=== PATIENT | male | born 1950 | race Caucasian/White ===

== ENCOUNTER 2017-05-30 11:01 | Inpatient (IN) | payer MEDICARE, OTHER ==
[2017-05-29] MEDS: Zosyn 3.375gm/50ml Premix 50 ML IVPB SCH (14:45)
[~2017-05-30] VITALS: Ht 172.7 cm; Wt 74.8 kg
[~2017-05-30 11:01] MED LIST: AMLODIPINE BESYL5 MG ORAL; CEFEPIME-D2 GM/50 ML IVPB; KLONOPIN1 MG ORAL; LAMICTAL100 MG ORAL; LEVETIRACETAM500 MG ORAL; METOPROLOL TART50 M1 ORAL; MILK OF MA400 MG/51 ORAL; MULTIVITAMINS1 EAC2 ORAL; NUEDEXTA 20-101 EAC1 PO; TYLENOL EXTRA500 MG ORAL; VANCOMYCIN HCL125 MG PO; VANCOMYCIN1 GM/2502 IVPB; ZYVOX600 MG ORAL; mylanta PO
[2017-05-30 11:36] VITALS: BP 107/56
[2017-05-30 11:44] LABS: APPEARANCE,URINE CLEAR; KETONES,URINE NEGATIVE (NEGATIVE); LEUKOCYTE ESTERASE ,URINE NEGATIVE (NEGATIVE); NITRITE,URINE NEGATIVE (NEGATIVE); PH,URINE 7 (4.5-8.0); PROTEIN,URINE NEGATIVE (NEGATIVE); UROBILINOGEN,URINE NORMAL MG/DL (0.0-1.0)
[2017-05-30 11:45] LABS: BASOPHILS % (AUTO) 0.5 % (0.0-2.0); EOSINOPHILS % (AUTO) 0.6 % (0.0-3.0); LYMPHOCYTES % (AUTO) 10.2 % (20.0-45.0); MEAN CORPUSCULAR HEMOGLOBIN 31.9 PG (27.0-31.0); MEAN CORPUSCULAR HGB CONC 35.2 G/DL (32.0-36.0); MEAN CORPUSCULAR VOLUME 91 FL (80-99); MEAN PLATELET VOLUME 5.9 FL (6.5-10.1); MONOCYTES % (AUTO) 8.3 % (1.0-10.0); NEUTROPHILS % (AUTO) 80.4 % (45.0-75.0); PLATELET COUNT 166 K/UL (150-450); RED BLOOD COUNT 4.58 M/UL (4.70-6.10); RED CELL DISTRIBUTION WIDTH 10.8 % (11.6-14.8); WHITE BLOOD COUNT 12.1 K/UL (4.8-10.8)
[2017-05-30 11:54] LABS: BACTERIA,URINE OCCASIONAL /HPF; SQUAMOUS EPITHELIAL CELL,UR OCCASIONAL /LPF (NONE/OCC); WBC,URINE 0-2 /HPF (0 - 0)
[2017-05-30 12:03] LABS: ALANINE AMINOTRANSFERASE 35 U/L (12-78); ALBUMIN/GLOBULIN RATIO 0.8 (1.0-2.7); ANION GAP 8 mmol/L (5-15); ASPARTATE AMINO TRANSFERASE 26 U/L (15-37); CALCIUM 9.2 MG/DL (8.5-10.1); CARBON DIOXIDE 28 MMOL/L (21-32); CHLORIDE 109 MMOL/L (98-107); GLOMERULAR FILTRATION RATE > 60 mL/min (>60); POTASSIUM 4.1 MMOL/L (3.5-5.1); SODIUM 145 MMOL/L (136-145); TOTAL PROTEIN 7.2 G/DL (6.4-8.2)
[2017-05-30 12:11] LABS: CKMB 0.6 NG/ML (0.0-3.6)
[2017-05-30] MEDS ORDERED: Cefepime HCl 1 GM in D5W 55 ML IVPB ONE (12:15)
[2017-05-30] MEDS ORDERED: Azithromycin 500 MG in NS 275 ML IV ONE (12:15)
[2017-05-30] MEDS ORDERED: BISACODYL5 MG ORAL (12:17)
[2017-05-30] MEDS ORDERED: RISPERDAL2 MG ORAL ×2 (12:17)
[2017-05-30] MEDS ORDERED: COLACE100 MG ORAL (12:17)
[2017-05-30] MEDS ORDERED: Cefepime 1gm vial ONE (12:20)
[2017-05-30] MEDS ORDERED: Azithromycin 500mg Inj IV ONE (12:20)
--- NOTE | 2017-05-30 12:41 | Diagnostic Imaging Report ---
Indication: Dyspnea Comparison: 06/07/16 A single view chest radiograph was obtained. Findings: Mild basilar groundglass reticular densities are present. There is no evidence of pulmonary edema. Bones are osteopenic. There is old left clavicle fracture again noted. Aorta is mildly calcified. Calcifications again noted in the left ovary hilum and mediastinum. Impression: Mild basilar reticular densities. Infiltrate versus atelectasis. Please correlate clinically. Old granulomatous disease
[2017-05-30 12:59] VITALS: BP 109/56
[2017-05-30] MEDS ORDERED: LORazepam Inj 2mg/ml 1ml IV ONE (13:15)
[2017-05-30] MEDS ORDERED: LORazepam Inj 2mg/ml 1ml ONE (13:16)
[2017-05-30] MEDS ORDERED: Piperacillin/Tazobactam 3.375 GM in D5W 110 ML IVPB SCH (14:15)
[2017-05-30] MEDS ORDERED: Milk of Magnesia 30ml Ud ORAL PRN (14:30)
[2017-05-30] MEDS ORDERED: Fleet's Enema 133ml RECTAL ONE (14:30)
--- NOTE | 2017-05-30 14:57 | Emergency Room Report ---
History of Present Illness General Chief Complaint: Fever Source: Patient, EMS Present Illness HPI 66-year-old male presents ED for evaluation. Per EMS patient does have fever at [facility] today. Patient was given Tylenol. Patient is unable to provide any additional history at this time as he has dementia. patient has no signs of distress. No cough. Shortness of breath. No aggravating relieving factors. No other associated symptoms Allergies: Coded Allergies: No Known Allergies (Unverified , 05/07/16) Patient History Past Medical History: COPD, dementia, seizures Past Surgical History: none Pertinent Family History: none Social History: Denies: smoking, alcohol use, drug use Immunizations: UTD Reviewed Nursing Documentation: PMH: Agreed, PSxH: Agreed Nursing Documentation-PMH Past Medical History: No History, Except For Hx Cardiac Problems: No Hx Hypertension: No Hx Pacemaker: No Hx Asthma: No Hx COPD: Yes Hx Diabetes: No Hx Cancer: No Hx Gastrointestinal Problems: No Hx Dialysis: No Hx Neurological Problems: Yes Hx Cerebrovascular Accident: Yes Hx Dementia: Yes - Frontal lobe dementia Hx Seizures: Yes Review of Systems All Other Systems: negative except mentioned in HPI Physical Exam Vital Signs Date Time Temp Pulse Resp B/P (MAP) Pulse Ox O2 Delivery O2 Flow Rate FiO2 05/30/17 11:02 97.2 86 20 94/58 93 Room Air Sp02 EP Interpretation: reviewed, normal General Appearance: non-toxic, other - dementia Head: normocephalic Eyes: bilateral eye normal inspection, bilateral eye PERRL ENT: normal ENT inspection Neck: normal inspection Respiratory: chest non-tender, lungs clear, normal breath sounds, speaking full sentences Cardiovascular #1: regular rate, rhythm, no edema Gastrointestinal: normal inspection Rectal: deferred Genitourinary: no CVA tenderness Musculoskeletal: normal inspection Neurologic: other - dementia Psychiatric: other - dementia Skin: normal inspection Lymphatic: normal inspection Medical Decision Making Diagnostic Impression: Primary Impression: Fever Qualified Codes: R50.9 - Fever, unspecified Additional Impressions: UTI (urinary tract infection) Qualified Codes: N39.0 - Urinary tract infection, site not specified PNA (pneumonia) Qualified Codes: J18.9 - Pneumonia, unspecified organism ER Course Hospital Course 66 year-old male presents to ED with fever Differential diagnoses include: Pneumonia, UTI, sepsis, dehydration, [place]/ unstable angina Clinical course Patient placed on stretcher. On manager cardiac with stable vitals are ED course. After initial history and physical, I ordered labs, IV fluids, EKG, chest x-ray, blood cultures, UA. Labs - electrolytes ok, noted leukocytosis, troponins negative, UA grossly positive for UTI, lactate ok CXR - infiltrate Abx given. Case discussed with Dr Rdz and they agreed to admit patient to their service for further care and support I feel this is a highly complex case requiring extensive working including EKG/ Rhythm strip, Xray/CT/US, Blood/urine lab work, repeat exams while in ED, and administration of strong opiates/narcotics for pain control, admission to hospital or close patient follow up. Diagnosis - fever, UTI, Pneumonia admitted to floor in serious condition Labs Test 05/30/17 11:20 White Blood Count 12.1 K/UL (4.8-10.8) Red Blood Count 4.58 M/UL (4.70-6.10) Hemoglobin 14.6 G/DL (14.2-18.0) Hematocrit 41.5 % (42.0-52.0) Mean Corpuscular Volume 91 FL (80-99) Mean Corpuscular Hemoglobin 31.9 PG (27.0-31.0) Mean Corpuscular Hemoglobin Concent 35.2 G/DL (32.0-36.0) Red Cell Distribution Width 10.8 % (11.6-14.8) Platelet Count 166 K/UL (150-450) Mean Platelet Volume 5.9 FL (6.5-10.1) Neutrophils (%) (Auto) 80.4 % (45.0-75.0) Lymphocytes (%) (Auto) 10.2 % (20.0-45.0) Monocytes (%) (Auto) 8.3 % (1.0-10.0) Eosinophils (%) (Auto) 0.6 % (0.0-3.0) Basophils (%) (Auto) 0.5 % (0.0-2.0) Urine Color Pale yellow Urine Appearance Clear Urine pH 7 (4.5-8.0) Urine Specific [place] 1.010 (1.005-1.035) Urine Protein Negative (NEGATIVE) Urine Glucose (UA) Negative (NEGATIVE) Urine Ketones Negative (NEGATIVE) Urine Occult Blood 1+ (NEGATIVE) Urine Nitrite Negative (NEGATIVE) Urine Bilirubin Negative (NEGATIVE) Urine Urobilinogen Normal MG/DL (0.0-1.0) Urine Leukocyte Esterase Negative (NEGATIVE) Urine RBC 2-4 /HPF (0 - 0) Urine WBC 0-2 /HPF (0 - 0) Urine Squamous Epithelial Cells Occasional /LPF Urine Bacteria Occasional /HPF (NONE) Sodium Level 145 MMOL/L (136-145) Potassium Level 4.1 MMOL/L (3.5-5.1) Chloride Level 109 MMOL/L (98-107) Carbon Dioxide Level 28 MMOL/L (21-32) Anion Gap 8 mmol/L (5-15) Blood Urea Nitrogen 18 mg/dL (7-18) Creatinine 1.0 MG/DL (0.55-1.30) Estimat Glomerular Filtration Rate > 60 mL/min (>60) Glucose Level 113 MG/DL (74-106) Lactic Acid Level 1.20 mmol/L (0.66-2.22) Calcium Level 9.2 MG/DL (8.5-10.1) Total Bilirubin 0.5 MG/DL (0.2-1.0) Aspartate Amino Transf (AST/SGOT) 26 U/L (15-37) Alanine Aminotransferase (ALT/SGPT) 35 U/L (12-78) Alkaline Phosphatase 75 U/L (46-116) Total Creatine Kinase 36 U/L (26-308) Creatine Kinase MB 0.6 NG/ML (0.0-3.6) Creatine Kinase MB Relative Index 1.6 Troponin I 0.008 ng/mL (0.000-0.056) Pro-B-Type Natriuretic Peptide 169 pg/mL (0-125) Total Protein 7.2 G/DL (6.4-8.2) Albumin 3.2 G/DL (3.4-5.0) Globulin 4.0 g/dL Albumin/Globulin Ratio 0.8 (1.0-2.7) Chest X-Ray Diagnostic Results Chest X-Ray Diagnostic Results : Chest X-Ray Ordered: Yes # of Views/Limited/Complete: 1 View Indication: Shortness of Breath EP Interpretation: Yes Interpretation: no consolidation, no pneumothorax, no acute cardiopulmonary disease, other - infiltrate/atelectasis Impression: Other - pneumonia Electronically Signed by: Electronically signed by Jasbir Albrecht MD Last Vital Signs Date Time Temp Pulse Resp B/P (MAP) Pulse Ox O2 Delivery O2 Flow Rate FiO2 05/30/17 13:23 99.0 80 20 109/56 95 Room Air Status: improved Disposition: ADMITTED INPATIENT Condition: Serious Referrals: Keila Rdz MD (PCP) JASBIR ALBRECHT M.D. May 30, 2017 14:57
[2017-05-30] MEDS: Zosyn 3.375gm/50ml Premix 50 ML IVPB SCH ×2 (15:27→21:38)
[2017-05-30 16:00] VITALS: BP 128/82
--- NOTE | 2017-05-30 19:18 | Neurology Progress Note ---
Objective Physical Exam Last Vital Signs Date Time Temp Pulse Resp B/P (MAP) Pulse Ox O2 Delivery O2 Flow Rate FiO2 05/30/17 16:00 97.7 85 20 128/82 96 Room Air Laboratory Tests Test 05/30/17 11:20 White Blood Count 12.1 K/UL (4.8-10.8) H Red Blood Count 4.58 M/UL (4.70-6.10) L Hemoglobin 14.6 G/DL (14.2-18.0) Hematocrit 41.5 % (42.0-52.0) L Mean Corpuscular Volume 91 FL (80-99) Mean Corpuscular Hemoglobin 31.9 PG (27.0-31.0) H Mean Corpuscular Hemoglobin Concent 35.2 G/DL (32.0-36.0) Red Cell Distribution Width 10.8 % (11.6-14.8) L Platelet Count 166 K/UL (150-450) Mean Platelet Volume 5.9 FL (6.5-10.1) L Neutrophils (%) (Auto) 80.4 % (45.0-75.0) H Lymphocytes (%) (Auto) 10.2 % (20.0-45.0) L Monocytes (%) (Auto) 8.3 % (1.0-10.0) Eosinophils (%) (Auto) 0.6 % (0.0-3.0) Basophils (%) (Auto) 0.5 % (0.0-2.0) Urine Color Pale yellow Urine Appearance Clear Urine pH 7 (4.5-8.0) Urine Specific [place] 1.010 (1.005-1.035) Urine Protein Negative (NEGATIVE) Urine Glucose (UA) Negative (NEGATIVE) Urine Ketones Negative (NEGATIVE) Urine Occult Blood 1+ (NEGATIVE) H Urine Nitrite Negative (NEGATIVE) Urine Bilirubin Negative (NEGATIVE) Urine Urobilinogen Normal MG/DL (0.0-1.0) Urine Leukocyte Esterase Negative (NEGATIVE) Urine RBC 2-4 /HPF (0 - 0) H Urine WBC 0-2 /HPF (0 - 0) Urine Squamous Epithelial Cells Occasional /LPF Urine Bacteria Occasional /HPF (NONE) Sodium Level 145 MMOL/L (136-145) Potassium Level 4.1 MMOL/L (3.5-5.1) Chloride Level 109 MMOL/L (98-107) H Carbon Dioxide Level 28 MMOL/L (21-32) Anion Gap 8 mmol/L (5-15) Blood Urea Nitrogen 18 mg/dL (7-18) Creatinine 1.0 MG/DL (0.55-1.30) Estimat Glomerular Filtration Rate > 60 mL/min (>60) Glucose Level 113 MG/DL (74-106) H Lactic Acid Level 1.20 mmol/L (0.66-2.22) Calcium Level 9.2 MG/DL (8.5-10.1) Total Bilirubin 0.5 MG/DL (0.2-1.0) Aspartate Amino Transf (AST/SGOT) 26 U/L (15-37) Alanine Aminotransferase (ALT/SGPT) 35 U/L (12-78) Alkaline Phosphatase 75 U/L (46-116) Total Creatine Kinase 36 U/L (26-308) Creatine Kinase MB 0.6 NG/ML (0.0-3.6) Creatine Kinase MB Relative Index 1.6 Troponin I 0.008 ng/mL (0.000-0.056) Pro-B-Type Natriuretic Peptide 169 pg/mL (0-125) H Total Protein 7.2 G/DL (6.4-8.2) Albumin 3.2 G/DL (3.4-5.0) L Globulin 4.0 g/dL Albumin/Globulin Ratio 0.8 (1.0-2.7) L Impression/Recommendations Problems: (1) s/p accidental fall r/oICH (2) PNA (pneumonia) (3) UTI (urinary tract infection) (4) Sacral decubitus ulcer, stage II Recommendations examined , orders placed FRANCIS HANKINS May 30, 2017 19:18
[2017-05-30 20:03] VITALS: BP 107/63
--- NOTE | 2017-05-30 23:30 | History and Physical Report ---
DATE OF ADMISSION: 05/30/2017 HISTORY OF PRESENT ILLNESS: The patient is admitted for fever of 101 at the senior care and admitted for sepsis workup. The patient is a poor historian, agitated and psychiatric patient. Cannot get any history from the patient. The patient might have UTI. The patient also might have pneumonia. Cannot get any history from the patient. PAST MEDICAL HISTORY: Psychosis, anxiety, mood disorder, constipation, history of hypertension, and seizure disorder. PAST SURGICAL HISTORY: Denies. ALLERGIES: No known allergies. MEDICATIONS: Bisacodyl, Klonopin, Colace, Lamictal, Keppra, multivitamin, and risperidone. SOCIAL HISTORY: Unable to obtain. Comes from a senior care. FAMILY HISTORY: Unable to obtain. Poor historian. REVIEW OF SYSTEMS: Unable to obtain. PHYSICAL EXAMINATION: VITAL SIGNS: Temperature 97.2, pulse is 86, and blood pressure 94/54. HEENT: PERRLA. NECK: Supple. No lymphadenopathy. CHEST: Clear to auscultation. GASTROINTESTINAL: Soft, nontender, and nondistended. No organomegaly. EXTREMITIES: No edema. NEUROLOGIC: Reflexes are equal on both sides. Oriented to name only. He is agitated. LABORATORY DATA: WBC 12.1, hemoglobin 14.6, platelets 166. He is trying to get out of bed. Sodium 145, potassium 4.1, BUN of 18, creatinine 1, glucose of 113. ASSESSMENT AND PLAN: Fever. Septic workup. I have consulted Infectious Disease to see the patient to rule out urinary tract infection versus pneumonia to find out the reason why the patient has such fever. I have again consulted Infectious Disease. For elevated chloride and hypotension, I have consulted Dr. Olivas to see if the patient might be dehydrated and Dr. Olivas will help with possible rehydration and improving the blood pressure control, and also I have consulted Dr. Polanco because the patient is agitated and restless and trying agitated and tried to get out bed. I also ordered a sitter as well. Kenneth Cervantes JOB#: [id number] CC:
[2017-05-30 23:50] VITALS: BP 135/78
[2017-05-31 04:00] VITALS: BP 129/107
[2017-05-31] MEDS: Zosyn 3.375gm/50ml Premix 50 ML IVPB SCH ×3 (05:01→21:17)
--- NOTE | 2017-05-31 07:30 | Consultation ---
DATE OF CONSULTATION: 05/30/2017 INFECTIOUS DISEASES CONSULTATION CONSULTING PHYSICIAN: Eula Sandhu M.D. REFERRING PHYSICIAN: Keila Rdz M.D. REASON FOR CONSULTATION: . HISTORY OF PRESENTING ILLNESS: This is a 66-year-old gentleman with history of pneumonia and altered mental status, who presents with increasing confusion. He was seen in [place] emergency room, and an Infectious Diseases consultation has been obtained for antibiotics. The patient received cefepime and azithromycin in the ER. PAST MEDICAL HISTORY: Unknown. MEDICATIONS: Pending. ALLERGIES: No known drug allergies. SOCIAL HISTORY: Unknown. FAMILY HISTORY: Unknown. REVIEW OF SYSTEMS: Unable to obtain currently. PHYSICAL EXAMINATION: VITAL SIGNS: Temperature of 99, T-max of 99, pulse of 80, respiratory rate 20, blood pressure 109/56, and O2 saturation of 95%. HEENT: Pupils are equally reactive to light and accommodation. Mouth appears clean without thrush. NECK: Supple. No adenopathy. No JVD. CARDIOVASCULAR: Regular rate and rhythm. No murmurs. LUNGS: Clear to auscultation bilaterally. No crackles. No wheezes. ABDOMEN: Soft and nontender. No organomegaly. EXTREMITIES: No cyanosis. No clubbing. No edema. LABORATORY AND DIAGNOSTIC DATA: White count of 12.1, hemoglobin 13.6, hematocrit 41.5, MCV 91, and platelet count of 166 with neutrophils of 80%. Sodium 145, potassium 4.1, chloride 109, bicarbonate 28, BUN 18, creatinine 1, glucose 113, and calcium 9.2. Total bilirubin 0.5. AST 26, ALT 35, and alkaline phosphatase 75. CK of 36, CK-MB 0.6, troponin 0.008, and beta-natriuretic peptide 169. Total protein 7.2 and albumin 3.2. UA showing 0 to 2 white cells. Blood cultures are pending. Chest x-ray showing mild bibasilar reticular densities, infiltrate versus atelectasis noted. ASSESSMENT: 1. This is a 66-year-old gentleman who comes in when he was found to have a leukocytosis and pneumonia. He received cefepime and azithromycin in the emergency room. 2. Leukocytosis. PLAN: 1. We will start the patient on Zosyn. 2. We will order sputum for Gram stain and culture. 3. We will follow up cultures and adjust antibiotics accordingly. I would like to thank Dr. Rdz for this consultation. This consultation has been done as coverage for Dr. Hunter Cross. Eula Sandhu M.D. DR: SHASHANK JOB#: [id number] CC: Keila Rdz M.D.; Fax#: [phone] HUNTER CROSS M.D. ; FAX#: [phone]
[2017-05-31 08:05] VITALS: BP 118/65
[2017-05-31] MEDS ORDERED: LORazepam Inj 2mg/ml 1ml IV ONE (08:45)
[2017-05-31] MEDS: Metoprolol Tartrate 50mg tab ORAL SCH (08:52)
[2017-05-31] MEDS: Multivitamins W/Minerals 15 ML UDC ORAL SCH (08:52)
[2017-05-31] MEDS: Ascorbic Acid 500mg tab ORAL SCH (08:52)
[2017-05-31] MEDS: levETIRAcetam 500mg/5ml Liquid ORAL SCH (08:53)
[2017-05-31] MEDS ORDERED: Docusate 100mg cap ORAL SCH (09:00)
[2017-05-31] MEDS ORDERED: levETIRAcetam 500mg/5ml Liquid ORAL SCH (09:00)
--- NOTE | 2017-05-31 10:08 | Wound Care Consultation ---
Wound Assessment Wound Assessment : Wound Number: 1 Wound Present on Admission: Yes New Wound: No Status Change of Wound: No Wound Location Body Site Modif: mid Wound Location Body Site: other - Sacrococcygeal Wound Type: pressure ulcer Lesly Test: Does not Lesly Pressure Ulcer Stage: I Wound Length: 5.5 Wound Width: 3.0 Percent of Wound [place]/Red: 100 Wound Drainage Amount: None Wound Drainage Odor: None/Absent Tissue Surrounding Wound: Erythemic Wound General Appearance: Reddened Wound Comment #1 Sacrococcygeal stage I pressure ulcer Recommendation -Local wound acre per protocol -Low air loss SPR mattress -Keep clean and dry -Turn and reposition -Optimize nutrition -Offload both heels -Heel protector on both heels -Assess and f/u accordingly for any changes ALLIE SINGH RN May 31, 2017 10:08
--- NOTE | 2017-05-31 10:53 | Infectious Diseases Prog Note ---
Assessment/Plan Assessment/Plan A; Pneumonia Psychosis s/p fall rule of ICH HPN Seizure disorder Seborrheic dermatitis P: Continue Zosyn will f/u cultures will f/u MRI report Subjective ROS Limited/Unobtainable: Yes Constitutional: Reports: no symptoms Respiratory: Reports: productive cough Musculoskeletal: Reports: pain, other - in hands Allergies: Coded Allergies: No Known Allergies (Unverified , 05/07/16) Objective Vital Signs Last 24 Hour Vital Signs Date Time Temp Pulse Resp B/P (MAP) Pulse Ox O2 Delivery O2 Flow Rate FiO2 05/31/17 08:53 77 118/65 05/31/17 08:52 77 118/65 05/31/17 08:05 97.8 77 20 118/65 95 Room Air 05/31/17 04:00 97.3 72 20 129/107 97 Room Air 05/30/17 23:50 98.4 81 20 135/78 96 Room Air 05/30/17 20:03 97.5 79 20 107/63 93 Room Air 05/30/17 16:00 97.7 85 20 128/82 96 Room Air 05/30/17 13:23 99.0 80 20 109/56 95 Room Air 05/30/17 12:59 99.0 80 20 109/56 95 Room Air 05/30/17 11:36 99.0 83 20 107/56 93 Room Air 05/30/17 11:02 97.2 86 20 94/58 93 Room Air Height (Feet): 5 Height (Inches): 8.00 Weight (Pounds): 165 General Appearance: no acute distress HEENT: other - facial rash Respiratory/Chest: lungs clear Cardiovascular: normal rate Abdomen: soft, non tender Extremities: no edema Neurologic/Psychiatric: alert, responsive Laboratory Tests Test 05/30/17 11:20 05/30/17 18:50 White Blood Count 12.1 K/UL (4.8-10.8) H Red Blood Count 4.58 M/UL (4.70-6.10) L Hemoglobin 14.6 G/DL (14.2-18.0) Hematocrit 41.5 % (42.0-52.0) L Mean Corpuscular Volume 91 FL (80-99) Mean Corpuscular Hemoglobin 31.9 PG (27.0-31.0) H Mean Corpuscular Hemoglobin Concent 35.2 G/DL (32.0-36.0) Red Cell Distribution Width 10.8 % (11.6-14.8) L Platelet Count 166 K/UL (150-450) Mean Platelet Volume 5.9 FL (6.5-10.1) L Neutrophils (%) (Auto) 80.4 % (45.0-75.0) H Lymphocytes (%) (Auto) 10.2 % (20.0-45.0) L Monocytes (%) (Auto) 8.3 % (1.0-10.0) Eosinophils (%) (Auto) 0.6 % (0.0-3.0) Basophils (%) (Auto) 0.5 % (0.0-2.0) Urine Color Pale yellow Urine Appearance Clear Urine pH 7 (4.5-8.0) Urine Specific [place] 1.010 (1.005-1.035) Urine Protein Negative (NEGATIVE) Urine Glucose (UA) Negative (NEGATIVE) Urine Ketones Negative (NEGATIVE) Urine Occult Blood 1+ (NEGATIVE) H Urine Nitrite Negative (NEGATIVE) Urine Bilirubin Negative (NEGATIVE) Urine Urobilinogen Normal MG/DL (0.0-1.0) Urine Leukocyte Esterase Negative (NEGATIVE) Urine RBC 2-4 /HPF (0 - 0) H Urine WBC 0-2 /HPF (0 - 0) Urine Squamous Epithelial Cells Occasional /LPF Urine Bacteria Occasional /HPF (NONE) Sodium Level 145 MMOL/L (136-145) Potassium Level 4.1 MMOL/L (3.5-5.1) Chloride Level 109 MMOL/L (98-107) H Carbon Dioxide Level 28 MMOL/L (21-32) Anion Gap 8 mmol/L (5-15) Blood Urea Nitrogen 18 mg/dL (7-18) Creatinine 1.0 MG/DL (0.55-1.30) Estimat Glomerular Filtration Rate > 60 mL/min (>60) Glucose Level 113 MG/DL (74-106) H Lactic Acid Level 1.20 mmol/L (0.66-2.22) Calcium Level 9.2 MG/DL (8.5-10.1) Total Bilirubin 0.5 MG/DL (0.2-1.0) Aspartate Amino Transf (AST/SGOT) 26 U/L (15-37) Alanine Aminotransferase (ALT/SGPT) 35 U/L (12-78) Alkaline Phosphatase 75 U/L (46-116) Total Creatine Kinase 36 U/L (26-308) Creatine Kinase MB 0.6 NG/ML (0.0-3.6) Creatine Kinase MB Relative Index 1.6 Troponin I 0.008 ng/mL (0.000-0.056) Pro-B-Type Natriuretic Peptide 169 pg/mL (0-125) H Total Protein 7.2 G/DL (6.4-8.2) Albumin 3.2 G/DL (3.4-5.0) L Globulin 4.0 g/dL Albumin/Globulin Ratio 0.8 (1.0-2.7) L Stool Occult Blood Negative (NEGATIVE) Current Medications Medications (Trade) Dose Ordered Sig/[place] Route PRN Reason Start Time Stop Time Status Last Admin Dose Admin Acetaminophen (Tylenol) 650 mg Q6H PRN ORAL Mild Pain/Temp > 100.5 05/30/17 14:30 06/29/17 14:29 Amlodipine Besylate (Norvasc) 5 mg DAILY ORAL 05/31/17 09:00 06/30/17 08:59 Ascorbic Acid (Vitamin C) 500 mg DAILY ORAL 05/31/17 09:00 06/30/17 08:59 05/31/17 08:52 Bisacodyl (Dulcolax) 10 mg DAILYPRN PRN RECTAL Constipation 05/30/17 14:30 06/29/17 14:29 Clonazepam (KlonoPIN) 1 mg BIDPRN PRN ORAL For Anxiety 05/30/17 14:30 06/06/17 14:29 05/30/17 16:07 Docusate Sodium (Colace) 100 mg DAILY ORAL 05/31/17 09:00 06/30/17 08:59 05/31/17 08:52 Lamotrigine (LaMICtal) 50 mg BID ORAL 05/30/17 18:00 06/29/17 17:59 05/31/17 08:52 Levetiracetam (Keppra) 500 mg DAILY ORAL 05/31/17 09:00 06/30/17 08:59 05/31/17 08:53 Magnesium Hydroxide (Mom) 30 ml DAILYPRN PRN ORAL Constipation 2nd Line Agent 05/30/17 14:30 06/29/17 14:29 Metoprolol Tartrate (Lopressor) 50 mg DAILY ORAL 05/31/17 09:00 06/30/17 08:59 05/31/17 08:52 Multivitamins (Multivitamins W/ Minerals 15ml Liquid) 15 ml DAILY ORAL 05/31/17 09:00 06/30/17 08:59 05/31/17 08:52 Piperacillin/ Tazobactam/ Dextrose 50 ml @ 12.5 mls/hr Q8HR IVPB 05/30/17 15:00 06/06/17 14:59 05/31/17 05:01 Risperidone (RisperDAL) 2 mg ACBREAKFAST ORAL 05/31/17 06:30 06/30/17 06:29 05/31/17 06:02 Risperidone (RisperDAL) 3 mg QPM ORAL 05/30/17 16:30 06/29/17 16:29 05/30/17 17:46 NIKA CROSS May 31, 2017 10:53
[2017-05-31 10:58] LABS: BASOPHILS % (AUTO) 0.7 % (0.0-2.0); EOSINOPHILS % (AUTO) 3.1 % (0.0-3.0); LYMPHOCYTES % (AUTO) 22.3 % (20.0-45.0); MEAN CORPUSCULAR HEMOGLOBIN 30.2 PG (27.0-31.0); MEAN CORPUSCULAR HGB CONC 32.2 G/DL (32.0-36.0); MEAN CORPUSCULAR VOLUME 94 FL (80-99); MEAN PLATELET VOLUME 5.3 FL (6.5-10.1); MONOCYTES % (AUTO) 7.1 % (1.0-10.0); NEUTROPHILS % (AUTO) 66.8 % (45.0-75.0); PLATELET COUNT 156 K/UL (150-450); RED BLOOD COUNT 4.29 M/UL (4.70-6.10); RED CELL DISTRIBUTION WIDTH 10.8 % (11.6-14.8)
--- NOTE | 2017-05-31 11:00 | Diagnostic Imaging Report ---
Indication: Trauma and headache Technique: Contiguous 5 mm thick transaxial imaging of the head obtained in a Siemens Sensation [address] scanner. Soft tissue and bone windows generated. Automatic Exposure Control was utilized. Total Dose length Product (DLP): [address] Dose Index Volume (CTDIvol): 70.38, 0.15, 70.38 mGy Comparison: none Findings: There is moderate prominence of the ventricles, basal cisterns, and cerebral sulci consistent with atrophy. Moderate, nonspecific, white matter hypoattenuation is noted throughout the brain consistent with chronic small vessel disease. There is a hyperdense focus measuring about 7 mm at the foramen of [place]ro. This is a midline structure and is likely a colloid cyst. There could be hemorrhage or protein within the cyst accounting for the high attenuation. The lateral ventricles are slightly dilated and questionably disproportionate to the degree of atrophy present. The possibility of hydrocephalus secondary to the colloid cyst is not excluded. Please correlate clinically. There is no midline shift, edema, mass effect, or abnormal extra-axial fluid collections. Bones and extra osseous soft tissues are unremarkable. Impression: 7 mm hyperdense focus at the confluence of the foramen of [place]ro. Findings suspicious for colloid cyst. Hemorrhage or protein may be within a colloid cyst accounting for the high attenuation. The possibility of obstructive hydrocephalus should also be considered given disproportionate ventriculomegaly. Moderate atrophy of the brain. Evidence of chronic small vessel disease involving white matter tracts. [facility] has communicated the preliminary results to the Emergency Department. Their findings are largely concordant with this report. The CT scanner at [facility] is accredited by the [employer] and the scans are performed using dose optimization techniques as appropriate to a performed exam including Automatic Exposure control.
[2017-05-31 11:05] LABS: ANION GAP 7 mmol/L (5-15); CARBON DIOXIDE 28 MMOL/L (21-32); CHLORIDE 109 MMOL/L (98-107); GLOMERULAR FILTRATION RATE > 60 mL/min (>60); POTASSIUM 3.8 MMOL/L (3.5-5.1); SODIUM 144 MMOL/L (136-145)
--- NOTE | 2017-05-31 11:29 | Diagnostic Imaging Report ---
Indication: Altered mental status Technique: The head was imaged in a 1.5 Kimberly magnet. Sequences obtained include sagittal and axial T1 FLAIR, axial T2 fast spin echo with fat saturation, axial T2 FLAIR, diffusion and ADC map. Comparison: CT head 05/30/17 Findings: There is a 6 mm T1 hyperintense focus in the foramen of [place]ro consistent with colloid cyst. T2-weighted images show low signal and there are some susceptibility. CT hyperdensity noted. There are likely that this is blood within the colloid cyst. Again there is ventricular megaly which may be slightly disproportionate to the degree of atrophy present. This is not for certain. Nonspecific periventricular T2 hyperintensity noted. There is no restricted diffusion to suggest acute CVA. [place]-white differentiation is normal. There is no mass effect, midline shift, edema, or hemorrhage. The corpus callosum and sella are unremarkable. The brainstem and cerebellum are unremarkable. Bone marrow signal within the visualized osseous structures appears age appropriate and unremarkable otherwise. Impression: 6 mm colloid cyst suspected at the foramen of [place]ro. Hemorrhage or proteinaceous fluid suspected within the cyst. Mild degree of obstructive hydrocephalus not excluded. Please correlate clinically. Mild atrophy and evidence of chronic small vessel disease involving white matter tracts.
[2017-05-31 11:50] VITALS: BP 139/77
--- NOTE | 2017-05-31 13:07 | Neurology Progress Note ---
Interim History Interim History ROS Limited/Unobtainable: Yes Complaints: none Events: stable no sz noted Objective Physical Exam Last Vital Signs Date Time Temp Pulse Resp B/P (MAP) Pulse Ox O2 Delivery O2 Flow Rate FiO2 05/31/17 11:50 98.8 68 20 139/77 99 Room Air Laboratory Tests Test 05/30/17 18:50 05/31/17 10:40 Stool Occult Blood Negative (NEGATIVE) White Blood Count 7.0 K/UL (4.8-10.8) Red Blood Count 4.29 M/UL (4.70-6.10) L Hemoglobin 13.0 G/DL (14.2-18.0) L Hematocrit 40.3 % (42.0-52.0) L Mean Corpuscular Volume 94 FL (80-99) Mean Corpuscular Hemoglobin 30.2 PG (27.0-31.0) Mean Corpuscular Hemoglobin Concent 32.2 G/DL (32.0-36.0) Red Cell Distribution Width 10.8 % (11.6-14.8) L Platelet Count 156 K/UL (150-450) Mean Platelet Volume 5.3 FL (6.5-10.1) L Neutrophils (%) (Auto) 66.8 % (45.0-75.0) Lymphocytes (%) (Auto) 22.3 % (20.0-45.0) Monocytes (%) (Auto) 7.1 % (1.0-10.0) Eosinophils (%) (Auto) 3.1 % (0.0-3.0) H Basophils (%) (Auto) 0.7 % (0.0-2.0) Sodium Level 144 MMOL/L (136-145) Potassium Level 3.8 MMOL/L (3.5-5.1) Chloride Level 109 MMOL/L (98-107) H Carbon Dioxide Level 28 MMOL/L (21-32) Anion Gap 7 mmol/L (5-15) Blood Urea Nitrogen 16 mg/dL (7-18) Creatinine 1.0 MG/DL (0.55-1.30) Estimat Glomerular Filtration Rate > 60 mL/min (>60) Glucose Level 111 MG/DL (74-106) H Calcium Level 9.0 MG/DL (8.5-10.1) General: no acute distress, other - cachectic Head: normocophalic, atraumatic Neck: no rigidity Neurologic Exam Mental Status: awake, alert, other - confused poor historian Speech: no dysarthia Language: no aphasia Cranial Nerve II: other - od blind OS finger count Cranial Nerves III, IV, : pupils, other - 4mm Cranial Nerve V: normal facial sensations Cranial Nerve VII: no facial asymmetry Cranial Nerve VIII: normal hearing Cranial Nerve IX: normal palate elevation Cranial Nerve X: no voice hoarseness Cranial Nerve XI: SCM symmetric Cranial Nerve XII: no tongue atrophy/fasciculations Motor System: no involuntary movement, no muscle wasting, other - diffuse rigidity Sensory: normal pinprick Coordination: other Deep Tendon Reflexes: 0 bicep (L), 0 bicep (R), 0 tricep (L), 0 tricep (R), 0 brachioradialis (L), 0 brachioradialis (R), 0 knee (L), 0 knee (R), 0 ankle (L) , 0 ankle (R) Reflexes: mute plantar (L), mute plantar (R) Impression/Recommendations Problems: (1) 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 FRANCIS HANKINS May 31, 2017 13:07
[2017-05-31] MEDS ORDERED: Tubing IV Secondary IV ONE (14:05)
[2017-05-31] MEDS ORDERED: NS 500ML IV ONE (14:05)
[2017-05-31 16:00] VITALS: BP 141/90
--- NOTE | 2017-05-31 17:02 | Consultation ---
Consult Note Consult Note HEMATOLOGY EVAL CONSULT REQUESTING PHYSICIAN: Keila Rdz M.D. REASON FOR CONSULTATION: Left side pneumonia with fever. HISTORY OF PRESENT ILLNESS: The patient is a 66-year-old male with schizophrenia, dementia, and COPD was brought in from the care home for shortness of breath,fever and sepsis evaluation and ID consulted. The patient was recently hospitalized due to elevated troponin in a different facilities and he was treated for possible [place]. In the emergency room, he had a chest x-ray, which showed left side pulmonary infiltration suspicious for pneumonia versus edema. The patient was given a dose of Unasyn and vancomycin in the emergency room and I was consulted by the primary provider for antibiotics recommendation and further evaluation. As of note, the patient is demented, cannot provide good history. History was mainly obtained from the medical record. PAST MEDICAL HISTORY: Significant for COPD, dementia, CVA, seizure disorder, and schizophrenia. PAST SURGICAL HISTORY: Negative. MEDICATIONS: He is on Norvasc, multivitamin, dextromethorphan, Lamictal, Keppra, Phenergan, Tylenol, Lopressor, vancomycin, ampicillin, and metronidazole. ALLERGIES: He has no known drug allergy. SOCIAL HISTORY: He is a care home resident. Denied using drugs, tobacco, or alcohol. FAMILY HISTORY: Unable to obtain. REVIEW OF SYSTEMS: Unable to obtain at this point. The patient cannot provide any history. PHYSICAL EXAMINATION: VITAL SIGNS: Temperature 97.7 degrees, pulse 116, respirations 21, blood pressure 129/74, and pulse oximetry 98% on two liters nasal cannula. GENERAL: The patient is a middle-aged male, up in bed the is, comfortable, awake and alert, not in distress. HEENT: Normocephalic and atraumatic. Pupils both reactive to light equally. Moist oral mucosa. No exudate. NECK: Supple. No lymphadenopathy. CARDIOVASCULAR: He is tachycardic. S1 and S2 positive. LUNGS: He had diminished breathing sounds with crackles on the left side. No wheezing. No rhonchi. Normal breathing efforts. ABDOMEN: Soft, nontender, and nondistended. Positive bowel sounds. No hepatosplenomegaly. No ascites. EXTREMITIES: He had knee scab with right heel wound with an eschar. No edema. No cyanosis. SKIN: He had rash on his buttocks in the sacral area. He has also wound in the sacrum at the midline, stage II with the yellowish material in the base and erythematous borders suggestive of cellulitis. LABORATORY DATA: CBC showed white count of 8.8, hemoglobin of 15.9, hematocrit 41.6, and platelet count of 391,000. BUN of 19 and creatinine of 1.1. AST of 38 and ALT of 15. Total CK 239. Urinalysis was negative for nitrite, negative for leukocyte esterase with occasional squamous epithelial cells, and bacteria. IMAGING: Chest x-ray showed mixed interstitial and alveolar opacity on the left. There is calcified node at the left lung base. No pneumothorax. No acute bony abnormalities. ASSESSMENT AND PLAN: # Anemia of chronic disease - continue to closely monitor --> mild and hgb goal is >10 # Recanalized chronic thrombus of the right leg, does not need anticoag # Sepsis suspect due to pneumonia. Continue wide-spectrum antibiotics therapy. Await blood culture. # Sacral decubitus ulcer, stage II. Recommend local wound care with dressing change as needed with antifungal topical treatment for his skin rash at the buttock area. # HCAP hx in the past # Potential UTI treatmentwith abx as per ID service Raffi Poe May 31, 2017 17:02
[2017-05-31 17:57] LABS: PROTHROMBIN TIME 10.1 SEC (9.30-11.50)
[2017-05-31] MEDS: Vancomycin 1250mg/D5W 250ml IVPB SCH (19:25)
--- NOTE | 2017-05-31 19:45 | Consultation ---
DATE OF CONSULTATION: 05/30/2017 NEUROLOGICAL CONSULTATION REQUESTING PHYSICIAN: Keila Rdz M.D. HISTORY OF PRESENT ILLNESS: This is a 66-year-old man, resident of a convalescent home, was admitted to this hospital for acute workup. During hospitalization, the patient was agitated, restless, had a mechanical fall, found to be on the ground without any external evidence of trauma. By protocol, stat CT of the brain was obtained, which revealed no acute intracranial abnormalities. There was moderate prominence of ventricles, atrophy, moderate nonspecific white matter hypoattenuation consistent with chronic small vessel disease. There was a 7 mm in size hyperdense focus at the foramen of Monro, likely colloid cyst. There could be hemorrhage or protein within this cyst accounting for high attenuation, lateral ventricle was slightly dilated and questionable disproportion to the degree of atrophy, possibility of hydrocephalus secondary to colloid cyst was not excluded. Stat MRI of the brain was requested to clarify diagnosis. This confirmed presence of 6 mm focus in foramen of Monro consistent with a colloid cyst. There is some susceptibility noted, hemorrhage or proteinaceous fluid suspected within the cyst, mild degree of obstructive hydrocephalus not excluded. No evidence of acute abnormalities. No evidence of parenchymal or subarachnoid hemorrhage noted. Lab work on admission included WBC 12.1. Stool occult blood negative. Chemistry panel was unremarkable except elevated BNP of 169. Blood sugar of 113, but normal troponin and normal CPK. Albumin down to 3.2. Imaging studies also included chest x-ray revealing mild basilar reticular densities, infiltrate versus atelectasis, old granulomatous disease. Since admission till present, there were no paroxysmal events. PAST MEDICAL HISTORY: The patient has a history of right eye cataract and poor vision on the left. He has a history of frontal lobe dementia, functional quadriplegia, the patient is bedridden with contracted both lower extremities. History of chronic seizure disorder, psychiatric disorder, and hypertension. MEDICATIONS: Treatment prior to admission included Keppra, Lamictal, Klonopin, and Risperdal. ALLERGIES: None reported. SOCIAL HISTORY: Resident of nursing facility. FAMILY HISTORY: Unavailable. REVIEW OF SYSTEMS: Unable to obtain due to the patient's status who was indicating that he is feeling weak, but no headache and no dizziness. PHYSICAL EXAMINATION: GENERAL: The patient is ill-appearing cachectic man, not in acute distress, lying in bed comfortably. VITAL SIGNS: His vital signs are stable, blood pressure 135/78 and temperature 98.4 degrees. HEENT: Head, normocephalic. There is no external evidence of trauma. No otorrhea. No rhinorrhea. No deformities in the cervical region. Range of motion normal. MUSCULOSKELETAL: Unremarkable except contracted both lower extremities. Peripheral pulses 1+ and symmetric. MENTAL STATUS: The patient is now alert. Follows simple commands. Indicated he is hungry. He was not engaged in any conversation. CRANIAL NERVE II: There is corneal cloudiness on the right, able to count fingers on the left. Extraocular movement full range. CRANIAL NERVE V: Normal corneal responses. CRANIAL NERVE VII: No gross asymmetry. CRANIAL NERVE VIII: Slight decrease in hearing. CRANIAL NERVES IX THROUGH XII: Tongue is in midline. Symmetric palate elevation. MOTOR EXAMINATION: Diffuse rigidity, briefly able to lift arms against the gravity, moving his both lower extremities, but this is flexor contracture of both knees. Deep reflexes 1+ bilaterally symmetric. Plantar response is mute. SENSORY EXAMINATION: Withdrawing to pin stimulation in all limbs. IMPRESSION: 1. Status post accidental fall with no evidence of intracranial abnormality. 2. 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 3. 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 4. Bedridden, contracted lower extremities. 5. Leukocytosis, pneumonia. 6. Chronic psychiatric disorder with psychotic features. 7. History of seizure disorder. RECOMMENDATIONS: The patient to remain on Keppra 500 mg b.i.d. and Lamictal 100 mg b.i.d. Avoid use of clonazepam in this age group, which is high dose of 2 mg b.i.d. Continue the Risperdal as per Psychiatry. Now, maintain on IV fluids and antibiotics. History of colloid cyst, most likely chronic, unlikely require emergency intervention. Certainly, neurosurgery evaluation may be obtained for a second opinion. Thank you for allowing me to see this interesting patient in neurological consultation. Oleg Menjivar M.D. DR: YOUNG JOB#: [id number] CC:
[2017-05-31 20:00] VITALS: BP 128/75
--- NOTE | 2017-05-31 20:33 | Consultation ---
History of Present Illness General Date patient seen: May 30, 2017 Chief Complaint: Fever Present Illness HPI 66-year-old man, resident of a convalescent home, was admitted to this hospital for medical stabilization. the patient was agitated, restless, had a mechanical fall, found to be on the ground without any external evidence of trauma. the pt is confused, agitated and unable to provide hx the pt is agitated and attempts to come out of bed Allergies: Coded Allergies: No Known Allergies (Unverified , 05/07/16) Medication History Scheduled Amlodipine Besylate* (Amlodipine Besylate*), 5 MG ORAL DAILY, (Reported) Clonazepam* (Klonopin*), 2 MG ORAL BID, (Reported) Dextromethorphan Hbr/Quinidine (Nuedexta 20-10 Mg Capsule), 1 EACH PO BID, ( Reported) Docusate Sodium* (Colace*), 100 MG ORAL DAILY, (Reported) Lamotrigine* (Lamictal*), 100 MG ORAL BID, (Reported) Levetiracetam* (Levetiracetam*), 500 MG ORAL TWICE A DAY, (Reported) Linezolid* (Zyvox*), 600 MG ORAL EVERY 12 HOURS, (Reported) Metoprolol Tartrate* (Metoprolol Tartrate*), 50 MG ORAL DAILY, (Reported) Multivitamins* (Multivitamins*), 1 TAB ORAL DAILY, (Reported) Risperidone* (Risperdal*), 2 MG ORAL ACBREAKFAST, (Reported) Risperidone* (Risperdal*), 3 MG ORAL QHS, (Reported) Vancomycin Hcl (Vancomycin Hcl), 125 MG PO FOUR TIMES A DAY, (Reported) Scheduled PRN Acetaminophen* (Tylenol Extra Strength*), 650 MG ORAL Q6H PRN for Mild Pain/ Temp > 100.5, (Reported) Bisacodyl* (Dulcolax*), 10 MG ORAL DAILY PRN for Constipation, (Reported) Magnesium Hydroxide* (Milk Of Magnesia*), 30 ML ORAL DAILY PRN for Constipation, (Reported) [mylanta], 30 ML PO DAILY PRN for Constipation, (Reported) Patient History Limited by: medical condition History Provided By: Patient, Medical Record, PMD Healthcare decision maker KUTU MARTIN Resuscitation status Full Code Advanced Directive on File Yes Past Medical/Surgical History Past Medical/Surgical History: (1) HCAP (healthcare-associated pneumonia) (2) Staphylococcal pneumonia (3) Colonization with VRE (vancomycin-resistant enterococcus) (4) UTI (urinary tract infection) (5) Fever (6) PNA (pneumonia) (7) Sacral decubitus ulcer, stage II (8) s/p accidental fall r/oICH (9) 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, chronic Review of Systems Psychiatric: Reports: prior hx, anxiety, depressed feelings, emotional problems Physical Exam General Appearance: no apparent distress, alert, confused, agitated Neurologic: alert, disoriented, unresponsiveness, depressed affect Last 24 Hour Vital Signs Date Time Temp Pulse Resp B/P (MAP) Pulse Ox O2 Delivery O2 Flow Rate FiO2 05/31/17 20:00 97.0 86 20 128/75 97 Room Air 05/31/17 16:00 98.2 68 20 141/90 96 Room Air 05/31/17 11:50 98.8 68 20 139/77 99 Room Air 05/31/17 08:53 77 118/65 05/31/17 08:52 77 118/65 05/31/17 08:05 97.8 77 20 118/65 95 Room Air 05/31/17 04:00 97.3 72 20 129/107 97 Room Air 05/30/17 23:50 98.4 81 20 135/78 96 Room Air Intake and Output 05/31/17 06/01/17 19:00 07:00 Intake Total 1195.0 ml Output Total 400 ml Balance 795.0 ml Intake Oral 1120 ml IV Total 75.0 ml Output Urine Total 400 ml # Voids 3 # Bowel Movements 1 Laboratory Tests Test 05/31/17 10:40 05/31/17 17:20 White Blood Count 7.0 K/UL (4.8-10.8) Red Blood Count 4.29 M/UL (4.70-6.10) L Hemoglobin 13.0 G/DL (14.2-18.0) L Hematocrit 40.3 % (42.0-52.0) L Mean Corpuscular Volume 94 FL (80-99) Mean Corpuscular Hemoglobin 30.2 PG (27.0-31.0) Mean Corpuscular Hemoglobin Concent 32.2 G/DL (32.0-36.0) Red Cell Distribution Width 10.8 % (11.6-14.8) L Platelet Count 156 K/UL (150-450) Mean Platelet Volume 5.3 FL (6.5-10.1) L Neutrophils (%) (Auto) 66.8 % (45.0-75.0) Lymphocytes (%) (Auto) 22.3 % (20.0-45.0) Monocytes (%) (Auto) 7.1 % (1.0-10.0) Eosinophils (%) (Auto) 3.1 % (0.0-3.0) H Basophils (%) (Auto) 0.7 % (0.0-2.0) Sodium Level 144 MMOL/L (136-145) Potassium Level 3.8 MMOL/L (3.5-5.1) Chloride Level 109 MMOL/L (98-107) H Carbon Dioxide Level 28 MMOL/L (21-32) Anion Gap 7 mmol/L (5-15) Blood Urea Nitrogen 16 mg/dL (7-18) Creatinine 1.0 MG/DL (0.55-1.30) Estimat Glomerular Filtration Rate > 60 mL/min (>60) Glucose Level 111 MG/DL (74-106) H Calcium Level 9.0 MG/DL (8.5-10.1) Prothrombin Time 10.1 SEC (9.30-11.50) Prothromb Time International Ratio 1.0 (0.9-1.1) Height (Feet): 5 Height (Inches): 8.00 Weight (Pounds): 165 Medications Current Medications Medications (Trade) Dose Ordered Sig/Henok Route PRN Reason Start Time Stop Time Status Last Admin Dose Admin Acetaminophen (Tylenol) 650 mg Q6H PRN ORAL Mild Pain/Temp > 100.5 05/30/17 14:30 06/29/17 14:29 Amlodipine Besylate (Norvasc) 5 mg DAILY ORAL 05/31/17 09:00 06/30/17 08:59 Ascorbic Acid (Vitamin C) 500 mg DAILY ORAL 05/31/17 09:00 06/30/17 08:59 05/31/17 08:52 Bisacodyl (Dulcolax) 10 mg DAILYPRN PRN RECTAL Constipation 05/30/17 14:30 06/29/17 14:29 Clonazepam (KlonoPIN) 1 mg BIDPRN PRN ORAL For Anxiety 05/30/17 14:30 06/06/17 14:29 05/30/17 16:07 Docusate Sodium (Colace) 100 mg DAILY ORAL 05/31/17 09:00 06/30/17 08:59 05/31/17 08:52 Heparin Sodium (Porcine) (Heparin 5000 units/ml) 5,000 units EVERY 12 HOURS SUBQ 05/31/17 21:00 06/30/17 20:59 Lamotrigine (LaMICtal) 50 mg BID ORAL 05/30/17 18:00 06/29/17 17:59 05/31/17 17:48 Levetiracetam (Keppra) 500 mg DAILY ORAL 05/31/17 09:00 06/30/17 08:59 05/31/17 08:53 Magnesium Hydroxide (Mom) 30 ml DAILYPRN PRN ORAL Constipation 2nd Line Agent 05/30/17 14:30 06/29/17 14:29 Metoprolol Tartrate (Lopressor) 50 mg DAILY ORAL 05/31/17 09:00 06/30/17 08:59 05/31/17 08:52 Multivitamins (Multivitamins W/ Minerals 15ml Liquid) 15 ml DAILY ORAL 05/31/17 09:00 06/30/17 08:59 05/31/17 08:52 Olanzapine (ZyPREXA) 5 mg Q6HR PRN ORAL Agitation 05/31/17 15:45 06/30/17 15:44 05/31/17 16:28 Olanzapine (ZyPREXA) 10 mg BEDTIME ORAL 05/31/17 21:00 06/30/17 20:59 Piperacillin/ Tazobactam/ Dextrose 50 ml @ 12.5 mls/hr Q8HR IVPB 05/30/17 15:00 06/06/17 14:59 05/31/17 15:28 Risperidone (RisperDAL) 2 mg ACBREAKFAST ORAL 05/31/17 06:30 06/30/17 06:29 05/31/17 06:02 Risperidone (RisperDAL) 3 mg QPM ORAL 05/30/17 16:30 06/29/17 16:29 05/31/17 16:28 Vancomycin HCl (Vanco rx to dose) 1 ea DAILY PRN MISC Per rx protocol 05/31/17 15:45 06/30/17 15:44 Vancomycin HCl/ Dextrose 250 ml @ 166.667 mls/hr Q12H IVPB 05/31/17 17:00 06/05/17 16:59 05/31/17 19:25 Assessment/Plan Status: unchanged Assessment/Plan encephalopathy due to [facility] zyprexa 10mg qhs zyprexa prn to stimulate appetite as well Jimena Polanco M.D. May 31, 2017 20:33
[2017-05-31] MEDS: Heparin 5000 units/ml inj SUBQ SCH (21:21)
--- NOTE | 2017-05-31 21:28 | General Progress Note ---
Assessment/Plan Problem List: (1) PNA (pneumonia) ICD Codes: J18.9 - Pneumonia, unspecified organism SNOMED: 119328406 Qualifiers: Qualified Codes: J18.9 - Pneumonia, unspecified organism (2) Fever ICD Codes: R50.9 - Fever, unspecified SNOMED: 359287426 Qualifiers: Qualified Codes: R50.9 - Fever, unspecified (3) UTI (urinary tract infection) ICD Codes: N39.0 - Urinary tract infection, site not specified SNOMED: 76463175 Qualifiers: Qualified Codes: N39.0 - Urinary tract infection, site not specified Status: stable Assessment/Plan sepsis and uti afebrile today abx per id reviewed chart and labs improving Subjective ROS Limited/Unobtainable: Yes Allergies: Coded Allergies: No Known Allergies (Unverified , 05/07/16) Objective Last 24 Hour Vital Signs Date Time Temp Pulse Resp B/P (MAP) Pulse Ox O2 Delivery O2 Flow Rate FiO2 05/31/17 20:00 97.0 86 20 128/75 97 Room Air 05/31/17 16:00 98.2 68 20 141/90 96 Room Air 05/31/17 11:50 98.8 68 20 139/77 99 Room Air 05/31/17 08:53 77 118/65 05/31/17 08:52 77 118/65 05/31/17 08:05 97.8 77 20 118/65 95 Room Air 05/31/17 04:00 97.3 72 20 129/107 97 Room Air 05/30/17 23:50 98.4 81 20 135/78 96 Room Air Intake and Output 05/31/17 06/01/17 19:00 07:00 Intake Total 1195.0 ml Output Total 400 ml Balance 795.0 ml Intake Oral 1120 ml IV Total 75.0 ml Output Urine Total 400 ml # Voids 3 # Bowel Movements 1 Laboratory Tests 05/31/17 10:40: White Blood Count 7.0, Red Blood Count 4.29L, Hemoglobin 13.0L, Hematocrit 40.3L , Mean Corpuscular Volume 94, Mean Corpuscular Hemoglobin 30.2, Mean Corpuscular Hemoglobin Concent 32.2, Red Cell Distribution Width 10.8L, Platelet Count 156, Mean Platelet Volume 5.3L, Neutrophils (%) (Auto) 66.8, Lymphocytes (%) (Auto) 22.3, Monocytes (%) (Auto) 7.1, Eosinophils (%) (Auto) 3.1H, Basophils (%) (Auto) 0.7, Sodium Level 144, Potassium Level 3.8, Chloride Level 109H, Carbon Dioxide Level 28, Anion Gap 7, Blood Urea Nitrogen 16, Creatinine 1.0, Estimat Glomerular Filtration Rate > 60, Glucose Level 111H, Calcium Level 9.0 05/31/17 17:20: Prothrombin Time 10.1, Prothromb Time International Ratio 1.0 Height (Feet): 5 Height (Inches): 8.00 Weight (Pounds): 165 General Appearance: confused Keila Rdz MD May 31, 2017 21:28
[2017-06-01] VITALS: BP 140/92
[2017-06-01 04:00] VITALS: BP 137/87
[2017-06-01] MEDS: Vancomycin 1250mg/D5W 250ml IVPB SCH ×2 (04:46→18:23)
[2017-06-01] MEDS: Zosyn 3.375gm/50ml Premix 50 ML IVPB SCH ×2 (06:31→22:17)
[2017-06-01 08:24] VITALS: BP 131/67
[2017-06-01] MEDS: Docusate 100mg/10ml Liq ORAL SCH ×2 (09:00→09:27)
[2017-06-01] MEDS: Metoprolol Tartrate 50mg tab ORAL SCH ×2 (09:00→09:28)
[2017-06-01] MEDS: Multivitamins W/Minerals 15 ML UDC ORAL SCH ×2 (09:00→09:27)
[2017-06-01] MEDS: Ascorbic Acid 500mg tab ORAL SCH ×2 (09:00→09:29)
[2017-06-01] MEDS: levETIRAcetam 500mg/5ml Liquid ORAL SCH ×2 (09:00→09:27)
[2017-06-01] MEDS: Heparin 5000 units/ml inj SUBQ SCH ×2 (09:32→21:00)
[2017-06-01 12:03] VITALS: BP 102/61
--- NOTE | 2017-06-01 12:33 | Infectious Diseases Prog Note ---
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 HPN Seizure disorder Seborrheic dermatitis P: Continue Zosyn & Vancomycin will f/u cultures Subjective ROS Limited/Unobtainable: Yes Allergies: Coded Allergies: No Known Allergies (Unverified , 05/07/16) Objective Vital Signs Last 24 Hour Vital Signs Date Time Temp Pulse Resp B/P (MAP) Pulse Ox O2 Delivery O2 Flow Rate FiO2 06/01/17 12:03 97.3 67 20 102/61 97 Room Air 06/01/17 09:00 97 131/67 06/01/17 09:00 97 131/67 06/01/17 08:24 98.0 97 18 131/67 96 Room Air 06/01/17 04:00 97.7 81 20 137/87 98 Room Air 06/01/17 00:00 97.0 88 20 140/92 95 Room Air 05/31/17 20:00 97.0 86 20 128/75 97 Room Air 05/31/17 16:00 98.2 68 20 141/90 96 Room Air Height (Feet): 5 Height (Inches): 8.00 Weight (Pounds): 165 General Appearance: no acute distress HEENT: mucous membranes moist Respiratory/Chest: lungs clear Cardiovascular: normal rate Abdomen: soft, non tender Extremities: no edema Neurologic/Psychiatric: other - sleeping Microbiology Date/Time Source Procedure Growth Status 05/30/17 11:20 Blood Blood Culture - Preliminary Staphylococcus Sp Coag Neg Resulted 05/30/17 11:20 Blood Blood Culture - Preliminary Resulted 05/30/17 12:05 Nasal Nares MRSA Culture - Final NO METHICILLIN RESISTANT STAPH AUREUS... Complete Laboratory Tests Test 05/31/17 17:20 Prothrombin Time 10.1 SEC (9.30-11.50) Prothromb Time International Ratio 1.0 (0.9-1.1) Current Medications Medications (Trade) Dose Ordered Sig/Henok Route PRN Reason Start Time Stop Time Status Last Admin Dose Admin Acetaminophen (Tylenol) 650 mg Q6H PRN ORAL Mild Pain/Temp > 100.5 05/30/17 14:30 06/29/17 14:29 Amlodipine Besylate (Norvasc) 5 mg DAILY ORAL 05/31/17 09:00 06/30/17 08:59 Ascorbic Acid (Vitamin C) 500 mg DAILY ORAL 05/31/17 09:00 06/30/17 08:59 05/31/17 08:52 Bisacodyl (Dulcolax) 10 mg DAILYPRN PRN RECTAL Constipation 05/30/17 14:30 06/29/17 14:29 Clonazepam (KlonoPIN) 1 mg BIDPRN PRN ORAL For Anxiety 05/30/17 14:30 06/06/17 14:29 05/31/17 21:17 Docusate Sodium (Colace) 100 mg DAILY ORAL 06/01/17 09:00 07/01/17 08:59 Heparin Sodium (Porcine) (Heparin 5000 units/ml) 5,000 units EVERY 12 HOURS SUBQ 05/31/17 21:00 06/30/17 20:59 06/01/17 09:32 Lamotrigine (LaMICtal) 50 mg BID ORAL 05/30/17 18:00 06/29/17 17:59 05/31/17 17:48 Levetiracetam (Keppra) 500 mg DAILY ORAL 05/31/17 09:00 06/30/17 08:59 05/31/17 08:53 Magnesium Hydroxide (Mom) 30 ml DAILYPRN PRN ORAL Constipation 2nd Line Agent 05/30/17 14:30 06/29/17 14:29 Metoprolol Tartrate (Lopressor) 50 mg DAILY ORAL 05/31/17 09:00 06/30/17 08:59 05/31/17 08:52 Multivitamins (Multivitamins W/ Minerals 15ml Liquid) 15 ml DAILY ORAL 05/31/17 09:00 06/30/17 08:59 05/31/17 08:52 Olanzapine (ZyPREXA) 5 mg Q6HR PRN ORAL Agitation 05/31/17 15:45 06/30/17 15:44 05/31/17 16:28 Olanzapine (ZyPREXA) 10 mg BEDTIME ORAL 05/31/17 21:00 06/30/17 20:59 05/31/17 21:17 Piperacillin/ Tazobactam/ Dextrose 50 ml @ 12.5 mls/hr Q8HR IVPB 05/30/17 15:00 06/06/17 14:59 06/01/17 06:31 Risperidone (RisperDAL) 2 mg ACBREAKFAST ORAL 05/31/17 06:30 06/30/17 06:29 06/01/17 06:31 Risperidone (RisperDAL) 3 mg QPM ORAL 05/30/17 16:30 06/29/17 16:29 05/31/17 16:28 Vancomycin HCl (Vanco rx to dose) 1 ea DAILY PRN MISC Per rx protocol 05/31/17 15:45 06/30/17 15:44 Vancomycin HCl/ Dextrose 250 ml @ 166.667 mls/hr Q12H IVPB 05/31/17 17:00 06/05/17 16:59 06/01/17 04:46 NIKA CROSS Jun 01, 2017 12:33
--- NOTE | 2017-06-01 14:10 | Diagnostic Imaging Report ---
APPROVED REPORT CPT Code: 29028 Present Symptoms Shortness of breath RIGHT LEG: Venous imaging reveals recanalized chronic thrombus in the superficial femoral vein. Large collateral vein noted anterior to the superficial femoral artery. The remainder of the deep venous system is within normal limits. There is no evidence of thrombus in the common femoral, popliteal or calf veins. The greater saphenous vein is also within normal limits. Doppler indicates normal spontaneous flow within these segments. LEFT LEG: Venous imaging reveals a patent deep venous system. There is no evidence of thrombus within the femoral, popliteal or tibial segments. The greater saphenous vein is also within normal limits. Doppler indicates normal spontaneous flow within these segments. There is no evidence of acute deep vein thrombosis.
[2017-06-01 16:00] VITALS: BP 128/75
--- NOTE | 2017-06-01 16:46 | General Progress Note ---
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 Continue wide-spectrum antibiotics therapy. Await blood culture. # Sacral decubitus ulcer, stage II. # HCAP hx in the past # Potential UTI treatmentwith abx as per ID service Subjective ROS Limited/Unobtainable: Yes Allergies: Coded Allergies: No Known Allergies (Unverified , 05/07/16) Subjective no complaints Objective Last 24 Hour Vital Signs Date Time Temp Pulse Resp B/P (MAP) Pulse Ox O2 Delivery O2 Flow Rate FiO2 06/01/17 16:00 97.7 80 17 128/75 93 Room Air 06/01/17 12:03 97.3 67 20 102/61 97 Room Air 06/01/17 09:00 97 131/67 06/01/17 09:00 97 131/67 06/01/17 08:24 98.0 97 18 131/67 96 Room Air 06/01/17 04:00 97.7 81 20 137/87 98 Room Air 06/01/17 00:00 97.0 88 20 140/92 95 Room Air 05/31/17 20:00 97.0 86 20 128/75 97 Room Air Laboratory Tests 05/31/17 17:20: Prothrombin Time 10.1, Prothromb Time International Ratio 1.0 Height (Feet): 5 Height (Inches): 8.00 Weight (Pounds): 165 General Appearance: no apparent distress EENT: normal ENT inspection Neck: normal alignment Respiratory/Chest: chest wall non-tender Abdomen: normal bowel sounds 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
[2017-06-01 20:26] VITALS: BP 118/76
--- NOTE | 2017-06-01 20:38 | General Progress Note ---
Assessment/Plan Problem List: (1) PNA (pneumonia) ICD Codes: J18.9 - Pneumonia, unspecified organism SNOMED: 269520113 Qualifiers: Qualified Codes: J18.9 - Pneumonia, unspecified organism (2) Fever ICD Codes: R50.9 - Fever, unspecified SNOMED: 819511094 Qualifiers: Qualified Codes: R50.9 - Fever, unspecified (3) UTI (urinary tract infection) ICD Codes: N39.0 - Urinary tract infection, site not specified SNOMED: 83399604 Qualifiers: Qualified Codes: N39.0 - Urinary tract infection, site not specified Status: progressing Assessment/Plan sepsis and uti reviewed chart and labs afebrile abx per id Subjective ROS Limited/Unobtainable: Yes Allergies: Coded Allergies: No Known Allergies (Unverified , 05/07/16) Objective Last 24 Hour Vital Signs Date Time Temp Pulse Resp B/P (MAP) Pulse Ox O2 Delivery O2 Flow Rate FiO2 06/01/17 20:26 97.2 67 18 118/76 97 Room Air 06/01/17 16:00 97.7 80 17 128/75 93 Room Air 06/01/17 12:03 97.3 67 20 102/61 97 Room Air 06/01/17 09:00 97 131/67 06/01/17 09:00 97 131/67 06/01/17 08:24 98.0 97 18 131/67 96 Room Air 06/01/17 04:00 97.7 81 20 137/87 98 Room Air 06/01/17 00:00 97.0 88 20 140/92 95 Room Air Intake and Output 06/01/17 06/02/17 19:00 07:00 # Voids 1 Height (Feet): 5 Height (Inches): 8.00 Weight (Pounds): 165 Cardiovascular: normal rate Respiratory/Chest: lungs clear Abdomen: soft Keila Rdz MD Jun 01, 2017 20:38
--- NOTE | 2017-06-01 22:50 | General Progress Note ---
Assessment/Plan Status: stable Subjective Neurologic/Psychiatric: Reports: anxiety, depressed Allergies: Coded Allergies: No Known Allergies (Unverified , 05/07/16) Objective Last 24 Hour Vital Signs Date Time Temp Pulse Resp B/P (MAP) Pulse Ox O2 Delivery O2 Flow Rate FiO2 06/01/17 20:26 97.2 67 18 118/76 97 Room Air 06/01/17 16:00 97.7 80 17 128/75 93 Room Air 06/01/17 12:03 97.3 67 20 102/61 97 Room Air 06/01/17 09:00 97 131/67 06/01/17 09:00 97 131/67 06/01/17 08:24 98.0 97 18 131/67 96 Room Air 06/01/17 04:00 97.7 81 20 137/87 98 Room Air 06/01/17 00:00 97.0 88 20 140/92 95 Room Air Intake and Output 06/01/17 06/02/17 19:00 07:00 # Voids 1 Height (Feet): 5 Height (Inches): 8.00 Weight (Pounds): 165 General Appearance: no apparent distress, alert, confused Neurologic: alert, disoriented, unresponsive, depressed affect Jimena Polanco M.D. Jun 01, 2017 22:50
[2017-06-02 00:09] VITALS: BP 129/76
[2017-06-02 04:06] VITALS: BP 124/75
[2017-06-02] MEDS: Zosyn 3.375gm/50ml Premix 50 ML IVPB SCH ×3 (05:47→21:39)
[2017-06-02 08:00] VITALS: BP 121/71
--- NOTE | 2017-06-02 09:20 | General Progress Note ---
Assessment/Plan Problem List: (1) PNA (pneumonia) ICD Codes: J18.9 - Pneumonia, unspecified organism SNOMED: 404431757 Qualifiers: Qualified Codes: J18.9 - Pneumonia, unspecified organism (2) Fever ICD Codes: R50.9 - Fever, unspecified SNOMED: 342490138 Qualifiers: Qualified Codes: R50.9 - Fever, unspecified (3) UTI (urinary tract infection) ICD Codes: N39.0 - Urinary tract infection, site not specified SNOMED: 07382021 Qualifiers: Qualified Codes: N39.0 - Urinary tract infection, site not specified Status: progressing Assessment/Plan sepsis and uti afebrile reviewed chart and labs and meds improving psych patient abx per id Subjective ROS Limited/Unobtainable: Yes Allergies: Coded Allergies: No Known Allergies (Unverified , 05/07/16) Objective Last 24 Hour Vital Signs Date Time Temp Pulse Resp B/P (MAP) Pulse Ox O2 Delivery O2 Flow Rate FiO2 06/02/17 08:00 97.7 78 20 121/71 97 Room Air 06/02/17 04:06 96.6 81 18 124/75 96 Room Air 06/02/17 00:09 96.8 58 18 129/76 97 Room Air 06/01/17 20:26 97.2 67 18 118/76 97 Room Air 06/01/17 16:00 97.7 80 17 128/75 93 Room Air 06/01/17 12:03 97.3 67 20 102/61 97 Room Air Laboratory Tests 06/02/17 06:20: Vancomycin Level Trough 21.3H Height (Feet): 5 Height (Inches): 8.00 Weight (Pounds): 165 General Appearance: confused Cardiovascular: normal rate Respiratory/Chest: lungs clear Keila Rdz MD Jun 02, 2017 09:20
[2017-06-02] MEDS: Ascorbic Acid 500mg tab ORAL SCH (09:40)
[2017-06-02] MEDS: Metoprolol Tartrate 50mg tab ORAL SCH (09:41)
[2017-06-02] MEDS: Docusate 100mg/10ml Liq ORAL SCH (09:42)
[2017-06-02] MEDS: Heparin 5000 units/ml inj SUBQ SCH ×2 (09:42→21:40)
[2017-06-02] MEDS: Multivitamins W/Minerals 15 ML UDC ORAL SCH (09:43)
[2017-06-02] MEDS: levETIRAcetam 500mg/5ml Liquid ORAL SCH (09:43)
[2017-06-02] MEDS: Vancomycin 1gm/D5W 275ml IVPB SCH ×2 (11:18)
--- NOTE | 2017-06-02 12:14 | Infectious Diseases Prog Note ---
Assessment/Plan Assessment/Plan antibiotics : vancomycin iv, zosyn A 1. 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 + blood cultures with coag neg staph likely contaminated 4. HTN 5. seborrheic dermatitis P 1. continue vancomycin iv, zosyn 2. will follow up cultures Subjective ROS Limited/Unobtainable: Yes Allergies: Coded Allergies: No Known Allergies (Unverified , 05/07/16) Objective Vital Signs Last 24 Hour Vital Signs Date Time Temp Pulse Resp B/P (MAP) Pulse Ox O2 Delivery O2 Flow Rate FiO2 06/02/17 09:41 78 121/71 06/02/17 09:40 78 121/71 06/02/17 08:00 97.7 78 20 121/71 97 Room Air 06/02/17 04:06 96.6 81 18 124/75 96 Room Air 06/02/17 00:09 96.8 58 18 129/76 97 Room Air 06/01/17 20:26 97.2 67 18 118/76 97 Room Air 06/01/17 16:00 97.7 80 17 128/75 93 Room Air Height (Feet): 5 Height (Inches): 8.00 Weight (Pounds): 165 Respiratory/Chest: lungs clear Cardiovascular: normal rate, regular rhythm, no gallop/murmur Abdomen: soft, non tender Extremities: no edema Skin: rash - erythematous on face Microbiology Date/Time Source Procedure Growth Status 06/01/17 13:10 Sputum Expectorated Gram Stain - Final Resulted 06/01/17 13:10 Sputum Expectorated Sputum Culture - Preliminary NO GROWTH Resulted Laboratory Tests Test 06/02/17 06:20 Vancomycin Level Trough 21.3 ug/mL (5.0-12.0) H GISELA JONES Jun 02, 2017 12:14
[2017-06-02 16:15] VITALS: BP 146/89
[2017-06-02 20:00] VITALS: BP 152/73
--- NOTE | 2017-06-02 22:32 | General Progress Note ---
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 # Sacral decubitus ulcer, stage II. # HCAP hx in the past Subjective ROS Limited/Unobtainable: Yes Allergies: Coded Allergies: No Known Allergies (Unverified , 05/07/16) Subjective NAD Objective Last 24 Hour Vital Signs Date Time Temp Pulse Resp B/P (MAP) Pulse Ox O2 Delivery O2 Flow Rate FiO2 06/02/17 20:00 98.4 74 20 152/73 96 Room Air 06/02/17 16:15 97.6 79 21 146/89 95 Room Air 06/02/17 09:41 78 121/71 06/02/17 09:40 78 121/71 06/02/17 08:00 97.7 78 20 121/71 97 Room Air 06/02/17 04:06 96.6 81 18 124/75 96 Room Air 06/02/17 00:09 96.8 58 18 129/76 97 Room Air Intake and Output 06/02/17 06/03/17 19:00 07:00 Intake Total 792.500 ml Balance 792.500 ml Intake Oral 480 ml IV Total 312.500 ml # Voids 1 Laboratory Tests 06/02/17 06:20: Vancomycin Level Trough 21.3H Height (Feet): 5 Height (Inches): 8.00 Weight (Pounds): 165 General Appearance: no apparent distress EENT: normal ENT inspection Cardiovascular: normal peripheral pulses Skin: normal pigmentation Raffi Poe Jun 02, 2017 22:32
[2017-06-03] VITALS (7 sets, daily range): BP systolic 128–150; BP diastolic 68–92
[2017-06-03] MEDS: Vancomycin 1gm/D5W 275ml IVPB SCH ×4 (00:21→11:44)
[2017-06-03] MEDS: Zosyn 3.375gm/50ml Premix 50 ML IVPB SCH ×3 (06:21→21:44)
[2017-06-03] MEDS: Heparin 5000 units/ml inj SUBQ SCH ×2 (09:00→21:43)
[2017-06-03] MEDS: Docusate 100mg/10ml Liq ORAL SCH (09:24)
[2017-06-03] MEDS: Ascorbic Acid 500mg tab ORAL SCH (09:25)
[2017-06-03] MEDS: Metoprolol Tartrate 50mg tab ORAL SCH (09:26)
[2017-06-03] MEDS: levETIRAcetam 500mg/5ml Liquid ORAL SCH (09:27)
[2017-06-03] MEDS: Multivitamins W/Minerals 15 ML UDC ORAL SCH (09:27)
--- NOTE | 2017-06-03 14:30 | Infectious Diseases Prog Note ---
Assessment/Plan Assessment/Plan A; Pneumonia CoNS in blood likely contamination Psychosis DEVELOPMENT SPEC colloid cyst HPN Seizure disorder Seborrheic dermatitis P: Continue Zosyn & Vancomycin will f/u cultures Subjective ROS Limited/Unobtainable: Yes Neurologic: Reports: confusion Allergies: Coded Allergies: No Known Allergies (Unverified , 05/07/16) Objective Vital Signs Last 24 Hour Vital Signs Date Time Temp Pulse Resp B/P (MAP) Pulse Ox O2 Delivery O2 Flow Rate FiO2 06/03/17 12:00 97.9 73 20 142/79 96 Room Air 06/03/17 09:27 76 142/68 06/03/17 09:26 76 142/68 06/03/17 08:20 97.8 76 20 142/68 96 Room Air 06/03/17 04:00 97.9 70 21 142/71 97 Room Air 06/03/17 00:00 98.0 74 18 147/69 96 Room Air 06/02/17 20:00 98.4 74 20 152/73 96 Room Air 06/02/17 16:15 97.6 79 21 146/89 95 Room Air Height (Feet): 5 Height (Inches): 8.00 Weight (Pounds): 165 General Appearance: no acute distress HEENT: mucous membranes moist Respiratory/Chest: lungs clear Cardiovascular: normal rate Abdomen: soft, non tender Extremities: no edema Skin: rash, other - face Neurologic/Psychiatric: alert Microbiology Date/Time Source Procedure Growth Status 06/01/17 13:10 Sputum Expectorated Gram Stain - Final Resulted 06/01/17 13:10 Sputum Culture - Preliminary Staphylococcus Aureus Resulted Current Medications Medications (Trade) Dose Ordered Sig/Henok Route PRN Reason Start Time Stop Time Status Last Admin Dose Admin Acetaminophen (Tylenol) 650 mg Q4H PRN ORAL Pain Scale (6-10) 06/02/17 13:15 07/02/17 13:14 Amlodipine Besylate (Norvasc) 5 mg DAILY ORAL 05/31/17 09:00 06/30/17 08:59 06/03/17 09:27 Ascorbic Acid (Vitamin C) 500 mg DAILY ORAL 05/31/17 09:00 06/30/17 08:59 06/03/17 09:25 Bisacodyl (Dulcolax) 10 mg DAILYPRN PRN RECTAL Constipation 05/30/17 14:30 06/29/17 14:29 Clonazepam (KlonoPIN) 1 mg BIDPRN PRN ORAL For Anxiety 05/30/17 14:30 06/06/17 14:29 05/31/17 21:17 Docusate Sodium (Colace) 100 mg DAILY ORAL 06/01/17 09:00 07/01/17 08:59 06/03/17 09:24 Heparin Sodium (Porcine) (Heparin 5000 units/ml) 5,000 units EVERY 12 HOURS SUBQ 05/31/17 21:00 06/30/17 20:59 06/02/17 21:40 Lamotrigine (LaMICtal) 50 mg BID ORAL 05/30/17 18:00 06/29/17 17:59 06/03/17 09:27 Levetiracetam (Keppra) 500 mg DAILY ORAL 05/31/17 09:00 06/30/17 08:59 06/03/17 09:27 Magnesium Hydroxide (Mom) 30 ml DAILYPRN PRN ORAL Constipation 2nd Line Agent 05/30/17 14:30 06/29/17 14:29 Metoprolol Tartrate (Lopressor) 50 mg DAILY ORAL 05/31/17 09:00 06/30/17 08:59 06/03/17 09:26 Multivitamins (Multivitamins W/ Minerals 15ml Liquid) 15 ml DAILY ORAL 05/31/17 09:00 06/30/17 08:59 06/03/17 09:27 Olanzapine (ZyPREXA) 5 mg Q6HR PRN ORAL Agitation 05/31/17 15:45 06/30/17 15:44 06/03/17 14:02 Olanzapine (ZyPREXA) 10 mg BEDTIME ORAL 05/31/17 21:00 06/30/17 20:59 06/02/17 21:39 Piperacillin/ Tazobactam/ Dextrose 50 ml @ 12.5 mls/hr Q8HR IVPB 05/30/17 15:00 06/06/17 14:59 06/03/17 14:05 Risperidone (RisperDAL) 2 mg ACBREAKFAST ORAL 05/31/17 06:30 06/30/17 06:29 06/02/17 05:49 Risperidone (RisperDAL) 3 mg QPM ORAL 05/30/17 16:30 06/29/17 16:29 06/03/17 06:23 Vancomycin HCl (Vanco rx to dose) 1 ea DAILY PRN MISC Per rx protocol 05/31/17 15:45 06/30/17 15:44 Vancomycin HCl 1 gm/Dextrose 275 ml @ 183.708 mls/hr Q12H IVPB 06/02/17 11:00 06/07/17 10:59 06/03/17 11:44 NIKA CROSS Jun 03, 2017 14:30
[2017-06-03] MEDS ORDERED: Haloperidol 5mg/ml Inj IM ONE (15:30)
[2017-06-03] MEDS ORDERED: LORazepam Inj 2mg/ml 1ml IM ONE (15:30)
[2017-06-03] MEDS ORDERED: DiphenhydrAMINE 50mg/ml Inj IM ONE (15:30)
--- NOTE | 2017-06-03 20:27 | General Progress Note ---
Assessment/Plan Problem List: (1) PNA (pneumonia) ICD Codes: J18.9 - Pneumonia, unspecified organism SNOMED: 288415258 Qualifiers: Qualified Codes: J18.9 - Pneumonia, unspecified organism (2) Fever ICD Codes: R50.9 - Fever, unspecified SNOMED: 857117709 Qualifiers: Qualified Codes: R50.9 - Fever, unspecified (3) UTI (urinary tract infection) ICD Codes: N39.0 - Urinary tract infection, site not specified SNOMED: 27348110 Qualifiers: Qualified Codes: N39.0 - Urinary tract infection, site not specified Status: progressing Assessment/Plan sepsis and uti afebrile reviewed chart no acute event psych patient Subjective ROS Limited/Unobtainable: Yes Allergies: Coded Allergies: No Known Allergies (Unverified , 05/07/16) Objective Last 24 Hour Vital Signs Date Time Temp Pulse Resp B/P (MAP) Pulse Ox O2 Delivery O2 Flow Rate FiO2 06/03/17 17:19 82 150/92 06/03/17 16:54 130/75 77 06/03/17 16:15 97.8 74 18 128/76 96 Room Air 06/03/17 12:00 97.9 73 20 142/79 96 Room Air 06/03/17 09:27 76 142/68 06/03/17 09:26 76 142/68 06/03/17 08:20 97.8 76 20 142/68 96 Room Air 06/03/17 04:00 97.9 70 21 142/71 97 Room Air 06/03/17 00:00 98.0 74 18 147/69 96 Room Air Intake and Output 06/03/17 06/04/17 19:00 07:00 Intake Total 420 ml Balance 420 ml Intake Oral 420 ml # Voids 4 Height (Feet): 5 Height (Inches): 8.00 Weight (Pounds): 165 Cardiovascular: normal rate Respiratory/Chest: lungs clear Keila Rdz MD Jun 03, 2017 20:27
--- NOTE | 2017-06-03 21:46 | General Progress Note ---
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 On antibiotics # Sacral decubitus ulcer, stage II. # HCAP hx in the past Subjective ROS Limited/Unobtainable: Yes Allergies: Coded Allergies: No Known Allergies (Unverified , 05/07/16) Subjective on abx Objective Last 24 Hour Vital Signs Date Time Temp Pulse Resp B/P (MAP) Pulse Ox O2 Delivery O2 Flow Rate FiO2 06/03/17 17:19 82 150/92 06/03/17 16:54 130/75 77 06/03/17 16:15 97.8 74 18 128/76 96 Room Air 06/03/17 12:00 97.9 73 20 142/79 96 Room Air 06/03/17 09:27 76 142/68 06/03/17 09:26 76 142/68 06/03/17 08:20 97.8 76 20 142/68 96 Room Air 06/03/17 04:00 97.9 70 21 142/71 97 Room Air 06/03/17 00:00 98.0 74 18 147/69 96 Room Air Intake and Output 06/03/17 06/04/17 19:00 07:00 Intake Total 420 ml Balance 420 ml Intake Oral 420 ml # Voids 4 Height (Feet): 5 Height (Inches): 8.00 Weight (Pounds): 165 General Appearance: no apparent distress EENT: normal ENT inspection Cardiovascular: normal peripheral pulses Abdomen: normal bowel sounds 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
[2017-06-03] MEDS: LORazepam Inj 2mg/ml 1ml IV PRN (23:12)
--- NOTE | 2017-06-03 23:22 | General Progress Note ---
Assessment/Plan Status: stable Assessment/Plan cont current meds depakote er 750qhs Subjective Neurologic/Psychiatric: Reports: anxiety, depressed, emotional problems Allergies: Coded Allergies: No Known Allergies (Unverified , 05/07/16) Objective Last 24 Hour Vital Signs Date Time Temp Pulse Resp B/P (MAP) Pulse Ox O2 Delivery O2 Flow Rate FiO2 06/03/17 17:19 82 150/92 06/03/17 16:54 130/75 77 06/03/17 16:15 97.8 74 18 128/76 96 Room Air 06/03/17 12:00 97.9 73 20 142/79 96 Room Air 06/03/17 09:27 76 142/68 06/03/17 09:26 76 142/68 06/03/17 08:20 97.8 76 20 142/68 96 Room Air 06/03/17 04:00 97.9 70 21 142/71 97 Room Air 06/03/17 00:00 98.0 74 18 147/69 96 Room Air Intake and Output 06/03/17 06/04/17 19:00 07:00 Intake Total 420 ml Balance 420 ml Intake Oral 420 ml # Voids 4 Height (Feet): 5 Height (Inches): 8.00 Weight (Pounds): 165 General Appearance: alert, confused, moderate distress, thin Neurologic: alert, responsive, disoriented, depressed affect Jimena Polanco M.D. Jun 03, 2017 23:22
[2017-06-04] VITALS: BP 150/76
[2017-06-04] MEDS: Vancomycin 1gm/D5W 275ml IVPB SCH ×2 (01:42)
[2017-06-04 04:00] VITALS: BP 147/81
[2017-06-04] MEDS: Zosyn 3.375gm/50ml Premix 50 ML IVPB SCH (05:02)
[2017-06-04 08:00] VITALS: BP 133/79
[2017-06-04] MEDS: Multivitamins W/Minerals 15 ML UDC ORAL SCH (10:01)
[2017-06-04] MEDS: levETIRAcetam 500mg/5ml Liquid ORAL SCH (10:02)
[2017-06-04] MEDS: Docusate 100mg/10ml Liq ORAL SCH (10:02)
[2017-06-04] MEDS: Heparin 5000 units/ml inj SUBQ SCH (10:05)
[2017-06-04] MEDS: Metoprolol Tartrate 50mg tab ORAL SCH (10:08)
[2017-06-04] MEDS: Ascorbic Acid 500mg tab ORAL SCH (10:20)
[2017-06-04 10:43] LABS: ALANINE AMINOTRANSFERASE 36 U/L (12-78); ALBUMIN/GLOBULIN RATIO 0.8 (1.0-2.7); ANION GAP 9 mmol/L (5-15); ASPARTATE AMINO TRANSFERASE 42 U/L (15-37); CALCIUM 9.1 MG/DL (8.5-10.1); CARBON DIOXIDE 25 MMOL/L (21-32); CHLORIDE 108 MMOL/L (98-107); CREATININE 0.8 MG/DL (0.55-1.30); GLOMERULAR FILTRATION RATE > 60 mL/min (>60); POTASSIUM 4.2 MMOL/L (3.5-5.1); SODIUM 142 MMOL/L (136-145); TOTAL PROTEIN 7.4 G/DL (6.4-8.2)
[2017-06-04 12:00] VITALS: BP 127/84
--- NOTE | 2017-06-04 12:10 | General Progress Note ---
Assessment/Plan Problem List: (1) PNA (pneumonia) ICD Codes: J18.9 - Pneumonia, unspecified organism SNOMED: 088215609 Qualifiers: Qualified Codes: J18.9 - Pneumonia, unspecified organism (2) Fever ICD Codes: R50.9 - Fever, unspecified SNOMED: 880597654 Qualifiers: Qualified Codes: R50.9 - Fever, unspecified (3) UTI (urinary tract infection) ICD Codes: N39.0 - Urinary tract infection, site not specified SNOMED: 93433174 Qualifiers: Qualified Codes: N39.0 - Urinary tract infection, site not specified Status: progressing Assessment/Plan sepsis and uti mrsa pna abx per id disscussed mrsa pna w dr varela today reviewed chart and labs Subjective ROS Limited/Unobtainable: Yes Constitutional: Reports: no symptoms Allergies: Coded Allergies: No Known Allergies (Unverified , 05/07/16) Objective Last 24 Hour Vital Signs Date Time Temp Pulse Resp B/P (MAP) Pulse Ox O2 Delivery O2 Flow Rate FiO2 06/04/17 10:08 79 137/77 06/04/17 10:07 79 137/77 06/04/17 08:00 98.2 84 20 133/79 98 Room Air 06/04/17 04:00 97.5 79 20 147/81 97 Room Air 06/04/17 00:00 97.1 81 19 150/76 96 Room Air 06/03/17 17:19 82 150/92 06/03/17 16:54 130/75 77 06/03/17 16:15 97.8 74 18 128/76 96 Room Air Laboratory Tests 06/04/17 09:50: Sodium Level 142, Potassium Level 4.2, Chloride Level 108H, Carbon Dioxide Level 25, Anion Gap 9, Blood Urea Nitrogen 15, Creatinine 0.8, Estimat Glomerular Filtration Rate > 60, Glucose Level 107H, Calcium Level 9.1, Total Bilirubin 0.4, Aspartate Amino Transf (AST/SGOT) 42H, Alanine Aminotransferase ( ALT/SGPT) 36, Alkaline Phosphatase 66, Total Protein 7.4, Albumin 3.3L, Globulin 4.1, Albumin/Globulin Ratio 0.8L, Vancomycin Level Trough 23.9H Height (Feet): 5 Height (Inches): 8.00 Weight (Pounds): 165 EENT: PERRL/EOMI Neck: supple Cardiovascular: normal rate Respiratory/Chest: lungs clear Keila Rdz MD Jun 04, 2017 12:10
--- NOTE | 2017-06-04 12:37 | Infectious Diseases Prog Note ---
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 Rdz Subjective ROS Limited/Unobtainable: Yes Respiratory: Reports: dry cough Neurologic: Reports: confusion Allergies: Coded Allergies: No Known Allergies (Unverified , 05/07/16) Objective Vital Signs Last 24 Hour Vital Signs Date Time Temp Pulse Resp B/P (MAP) Pulse Ox O2 Delivery O2 Flow Rate FiO2 06/04/17 10:08 79 137/77 06/04/17 10:07 79 137/77 06/04/17 08:00 98.2 84 20 133/79 98 Room Air 06/04/17 04:00 97.5 79 20 147/81 97 Room Air 06/04/17 00:00 97.1 81 19 150/76 96 Room Air 06/03/17 17:19 82 150/92 06/03/17 16:54 130/75 77 06/03/17 16:15 97.8 74 18 128/76 96 Room Air Height (Feet): 5 Height (Inches): 8.00 Weight (Pounds): 165 General Appearance: no acute distress HEENT: other - facial rash Cardiovascular: normal rate Abdomen: soft, non tender Extremities: no edema Skin: rash, other - facial Neurologic/Psychiatric: disoriented Microbiology Date/Time Source Procedure Growth Status 06/01/17 13:10 Sputum Expectorated Gram Stain - Final Complete 06/01/17 13:10 Sputum Culture - Final Staphylococcus Aureus - Mrsa Evelyn Albicans Complete Laboratory Tests Test 06/04/17 09:50 Sodium Level 142 MMOL/L (136-145) Potassium Level 4.2 MMOL/L (3.5-5.1) Chloride Level 108 MMOL/L (98-107) H Carbon Dioxide Level 25 MMOL/L (21-32) Anion Gap 9 mmol/L (5-15) Blood Urea Nitrogen 15 mg/dL (7-18) Creatinine 0.8 MG/DL (0.55-1.30) Estimat Glomerular Filtration Rate > 60 mL/min (>60) Glucose Level 107 MG/DL (74-106) H Calcium Level 9.1 MG/DL (8.5-10.1) Total Bilirubin 0.4 MG/DL (0.2-1.0) Aspartate Amino Transf (AST/SGOT) 42 U/L (15-37) H Alanine Aminotransferase (ALT/SGPT) 36 U/L (12-78) Alkaline Phosphatase 66 U/L (46-116) Total Protein 7.4 G/DL (6.4-8.2) Albumin 3.3 G/DL (3.4-5.0) L Globulin 4.1 g/dL Albumin/Globulin Ratio 0.8 (1.0-2.7) L Vancomycin Level Trough 23.9 ug/mL (5.0-12.0) H Current Medications Medications (Trade) Dose Ordered Sig/Henok Route PRN Reason Start Time Stop Time Status Last Admin Dose Admin Acetaminophen (Tylenol) 650 mg Q4H PRN ORAL Pain Scale (6-10) 06/02/17 13:15 07/02/17 13:14 Amlodipine Besylate (Norvasc) 5 mg DAILY ORAL 05/31/17 09:00 06/30/17 08:59 06/04/17 10:07 Ascorbic Acid (Vitamin C) 500 mg DAILY ORAL 05/31/17 09:00 06/30/17 08:59 06/04/17 10:20 Bisacodyl (Dulcolax) 10 mg DAILYPRN PRN RECTAL Constipation 05/30/17 14:30 06/29/17 14:29 Divalproex Sodium (Depakote ER) 750 mg BEDTIME ORAL 06/04/17 21:00 07/04/17 20:59 Docusate Sodium (Colace) 100 mg DAILY ORAL 06/01/17 09:00 07/01/17 08:59 06/04/17 10:02 Heparin Sodium (Porcine) (Heparin 5000 units/ml) 5,000 units EVERY 12 HOURS SUBQ 05/31/17 21:00 06/30/17 20:59 06/04/17 10:05 Levetiracetam (Keppra) 500 mg DAILY ORAL 05/31/17 09:00 06/30/17 08:59 06/04/17 10:02 Lorazepam (Ativan 2mg/ml 1ml) 1 mg Q4H PRN IV Agitation 06/03/17 18:45 06/10/17 18:44 06/03/17 23:12 Magnesium Hydroxide (Mom) 30 ml DAILYPRN PRN ORAL Constipation 2nd Line Agent 05/30/17 14:30 06/29/17 14:29 Metoprolol Tartrate (Lopressor) 50 mg DAILY ORAL 05/31/17 09:00 06/30/17 08:59 06/04/17 10:08 Multivitamins (Multivitamins W/ Minerals 15ml Liquid) 15 ml DAILY ORAL 05/31/17 09:00 06/30/17 08:59 06/04/17 10:01 Olanzapine (ZyPREXA) 5 mg Q6HR PRN ORAL Agitation 05/31/17 15:45 06/30/17 15:44 06/03/17 14:02 Olanzapine (ZyPREXA) 10 mg BEDTIME ORAL 05/31/17 21:00 06/30/17 20:59 06/03/17 21:43 Piperacillin Sod/ Tazobactam Sod 3.375 gm/Dextrose 55 ml @ 13.75 mls/ hr EVERY 8 HOURS IVPB 06/04/17 22:00 06/11/17 21:59 Piperacillin/ Tazobactam/ Dextrose 50 ml @ 12.5 mls/hr Q8HR IVPB 05/30/17 15:00 06/04/17 21:59 06/04/17 05:02 Vancomycin HCl (Vanco rx to dose) 1 ea DAILY PRN MISC Per rx protocol 05/31/17 15:45 06/30/17 15:44 Vancomycin/Sodium Chloride 250 ml @ 166.667 mls/hr Q12HR@0600,1800 IVPB 06/04/17 18:00 06/09/17 17:59 NIKA CROSS Jun 04, 2017 12:37
[2017-06-04] MEDS ORDERED: DOXYCYCLINE MO100 MG ORAL (12:53)
[2017-06-04] MEDS: LORazepam Inj 2mg/ml 1ml IV PRN (13:12)
[2017-06-04 16:00] VITALS: BP 129/73
[2017-06-04] MEDS ORDERED: Vancomycin 750mg/NS 250ml IVPB SCH (18:00)
[2017-06-04] MEDS ORDERED: Heparin 5000 units/ml inj SUBQ SCH (21:00)
[2017-06-04] MEDS ORDERED: Depakote ER 250mg tab ORAL SCH (21:00)
[2017-06-04] MEDS ORDERED: Piperacillin/Tazobactam 3.375 GM in D5W 55 ML IVPB SCH (22:00)
--- NOTE | 2017-06-04 22:12 | General Progress Note ---
Assessment/Plan Assessment/Plan cont current [facility] 750qhs Subjective Date patient seen: Jun 02, 2017 Allergies: Coded Allergies: No Known Allergies (Unverified , 05/07/16) Objective Last 24 Hour Vital Signs Date Time Temp Pulse Resp B/P (MAP) Pulse Ox O2 Delivery O2 Flow Rate FiO2 06/04/17 16:00 98.0 74 18 129/73 97 Room Air 06/04/17 12:00 97.3 79 20 127/84 99 Room Air 06/04/17 10:08 79 137/77 06/04/17 10:07 79 137/77 06/04/17 08:00 98.2 84 20 133/79 98 Room Air 06/04/17 04:00 97.5 79 20 147/81 97 Room Air 06/04/17 00:00 97.1 81 19 150/76 96 Room Air Intake and Output 06/04/17 06/05/17 19:00 07:00 Intake Total 240 ml Balance 240 ml Intake Oral 240 ml # Voids 3 Laboratory Tests 06/04/17 09:50: Sodium Level 142, Potassium Level 4.2, Chloride Level 108H, Carbon Dioxide Level 25, Anion Gap 9, Blood Urea Nitrogen 15, Creatinine 0.8, Estimat Glomerular Filtration Rate > 60, Glucose Level 107H, Calcium Level 9.1, Total Bilirubin 0.4, Aspartate Amino Transf (AST/SGOT) 42H, Alanine Aminotransferase ( ALT/SGPT) 36, Alkaline Phosphatase 66, Total Protein 7.4, Albumin 3.3L, Globulin 4.1, Albumin/Globulin Ratio 0.8L, Vancomycin Level Trough 23.9H Height (Feet): 5 Height (Inches): 8.00 Weight (Pounds): 165 Jimena Polanco M.D. Jun 04, 2017 22:12
--- NOTE | 2017-06-04 22:12 | General Progress Note ---
Assessment/Plan Status: stable, progressing Assessment/Plan cont current meds depakote er 750qhs Subjective Date patient seen: Jun 04, 2017 Neurologic/Psychiatric: Reports: anxiety, depressed, emotional problems Allergies: Coded Allergies: No Known Allergies (Unverified , 05/07/16) Objective Last 24 Hour Vital Signs Date Time Temp Pulse Resp B/P (MAP) Pulse Ox O2 Delivery O2 Flow Rate FiO2 06/04/17 16:00 98.0 74 18 129/73 97 Room Air 06/04/17 12:00 97.3 79 20 127/84 99 Room Air 06/04/17 10:08 79 137/77 06/04/17 10:07 79 137/77 06/04/17 08:00 98.2 84 20 133/79 98 Room Air 06/04/17 04:00 97.5 79 20 147/81 97 Room Air 06/04/17 00:00 97.1 81 19 150/76 96 Room Air Intake and Output 06/04/17 06/05/17 19:00 07:00 Intake Total 240 ml Balance 240 ml Intake Oral 240 ml # Voids 3 Laboratory Tests 06/04/17 09:50: Sodium Level 142, Potassium Level 4.2, Chloride Level 108H, Carbon Dioxide Level 25, Anion Gap 9, Blood Urea Nitrogen 15, Creatinine 0.8, Estimat Glomerular Filtration Rate > 60, Glucose Level 107H, Calcium Level 9.1, Total Bilirubin 0.4, Aspartate Amino Transf (AST/SGOT) 42H, Alanine Aminotransferase ( ALT/SGPT) 36, Alkaline Phosphatase 66, Total Protein 7.4, Albumin 3.3L, Globulin 4.1, Albumin/Globulin Ratio 0.8L, Vancomycin Level Trough 23.9H Height (Feet): 5 Height (Inches): 8.00 Weight (Pounds): 165 General Appearance: alert, confused, agitated Neurologic: alert, disoriented, depressed affect Jimena Polanco M.D. Jun 04, 2017 22:12
--- NOTE | 2017-06-04 22:41 | General Progress Note ---
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 On antibiotics # Sacral decubitus ulcer, stage II. # HCAP hx in the past Subjective ROS Limited/Unobtainable: Yes Allergies: Coded Allergies: No Known Allergies (Unverified , 05/07/16) Subjective on abx Objective Last 24 Hour Vital Signs Date Time Temp Pulse Resp B/P (MAP) Pulse Ox O2 Delivery O2 Flow Rate FiO2 06/04/17 16:00 98.0 74 18 129/73 97 Room Air 06/04/17 12:00 97.3 79 20 127/84 99 Room Air 06/04/17 10:08 79 137/77 06/04/17 10:07 79 137/77 06/04/17 08:00 98.2 84 20 133/79 98 Room Air 06/04/17 04:00 97.5 79 20 147/81 97 Room Air 06/04/17 00:00 97.1 81 19 150/76 96 Room Air Intake and Output 06/04/17 06/05/17 19:00 07:00 Intake Total 240 ml Balance 240 ml Intake Oral 240 ml # Voids 3 Laboratory Tests 06/04/17 09:50: Sodium Level 142, Potassium Level 4.2, Chloride Level 108H, Carbon Dioxide Level 25, Anion Gap 9, Blood Urea Nitrogen 15, Creatinine 0.8, Estimat Glomerular Filtration Rate > 60, Glucose Level 107H, Calcium Level 9.1, Total Bilirubin 0.4, Aspartate Amino Transf (AST/SGOT) 42H, Alanine Aminotransferase ( ALT/SGPT) 36, Alkaline Phosphatase 66, Total Protein 7.4, Albumin 3.3L, Globulin 4.1, Albumin/Globulin Ratio 0.8L, Vancomycin Level Trough 23.9H Height (Feet): 5 Height (Inches): 8.00 Weight (Pounds): 165 Raffi Poe Jun 04, 2017 22:41
[2017-06-05] MEDS ORDERED: Aspirin Baby 81mg ORAL SCH (09:00)
--- NOTE | 2017-06-05 12:42 | Discharge Summary ---
Discharge Summary Hospital Course Date of Admission May 30, 2017 at 11:57 Date of Discharge Jun 04, 2017 at 19:45 Admitting Diagnosis FEVER HPI Derek Garcia is a 66 year old male who was admitted on May 30, 2017 at 11: 57 for FEVER Hospital Course dc summary #[id number] Discharge Medications Continued Medications: Acetaminophen* (Tylenol Extra Strength*) 500 Mg Tablet 650 MG ORAL Q6H PRN for Mild Pain/Temp > 100.5, TAB 0 Refills Amlodipine Besylate* (Amlodipine Besylate*) 5 Mg Tablet 5 MG ORAL DAILY, TAB Bisacodyl* (Dulcolax*) 5 Mg Tablet.dr 10 MG ORAL DAILY PRN for Constipation, #10 TAB 0 Refills Clonazepam* (Klonopin*) 1 Mg Tablet 2 MG ORAL BID, #15 TAB 0 Refills Dextromethorphan Hbr/Quinidine (Nuedexta 20-10 Mg Capsule) 1 Each Capsule 1 EACH PO BID, CAP Docusate Sodium* (Colace*) 100 Mg Capsule 100 MG ORAL DAILY, CAP Doxycycline Monohydrate* (Doxycycline Monohydrate*) 100 Mg Capsule 100 MG ORAL TWICE A DAY for 7 Days, #14 CAP 0 Refills Lamotrigine* (Lamictal*) 100 Mg Tablet 100 MG ORAL BID, #30 TAB 0 Refills Levetiracetam* (Levetiracetam*) 500 Mg Tablet 500 MG ORAL TWICE A DAY, #60 TAB 0 Refills Magnesium Hydroxide* (Milk Of Magnesia*) 400 Mg/5 Ml Oral.susp 30 ML ORAL DAILY PRN for Constipation, ML Metoprolol Tartrate* (Metoprolol Tartrate*) 50 Mg Tablet 50 MG ORAL DAILY, TAB Multivitamins* (Multivitamins*) 1 Each Tablet 1 TAB ORAL DAILY, TAB 0 Refills Risperidone* (Risperdal*) 2 Mg Tablet 2 MG ORAL ACBREAKFAST, #30 TAB 0 Refills Discharge Condition Upon Discharge: stable Discharge Disposition Patient was discharged to SNF/Subacute Facility(03) Discharge Diagnoses: Discharge Instructions Discharge Instructions Special Instructions I have been assigned to complete a D/C Summary on this account. I was not involved in the patient management Nat Silveira NP ([place]) Jun 05, 2017 12:42
--- NOTE | 2017-06-06 03:00 | Discharge Summary 2 SIG ---
DATE OF ADMISSION: 05/30/2017 DATE OF DISCHARGE: 06/04/2017 REASON FOR ADMISSION: 66 years old male with history of COPD, dementia, CVA, and seizure disorder, was sent from the half-way facility for evaluation of fever. The patient received Tylenol at the half-way facility and was sent by paramedics for further evaluation. The patient was unable to provide meaningful information due to the dementia. However, no cough, no shortness of breath, no fever, and no chills. In the emergency department, laboratory workup revealed leukocytosis, WBC -12.1. Chest x-ray revealed atelectasis versus infiltrate. CT of the head revealed findings suspicious for colloid cyst. Moderate atrophy of the brain. Evidence of chronic small vessel disease involving white matter tracts. The patient was admitted for pneumonia, fever, dementia, and seizure disorder. HOSPITAL COURSE: The patient was admitted. The patient was started on empiric antibiotics. Infectious Disease consult was requested. Sputum culture was positive for MRSA and Evelyn. Blood culture were positive for Staph coagulase-negative. The patient was on the IV antibiotic as directed by Infectious Disease specialist. Blood culture contaminant as per Infectious Disease conclusion. While in the hospital, the patient was on the IV antibiotic and changed to oral antibiotic for seven additional days at the half-way facility. Leukocytosis resolved, no fever. Neurologist closely followed the patient. MRI of the brain revealed 6 mm colloid cyst at the foramina of [place], hemorrhage or proteinaceous fluid suspected within the cyst. Mild degree of obstructive hydrocephalus not excluded. Mild atrophy and evidence of chronic small vessel disease involving white matter tracts. Per Neurologist, the colloid cyst was most likely chronic amd unlikely to require emergency intervention. Neurologist recommended neurosurgery evaluation, but it can be done as an outpatient. Seizure precautions were maintained, no seizure activity while in the hospital. The patient was continued on Keppra and Lamictal. Neurologist recommended to avoid clonazepam at this age group. Venous Duplex bilateral lower extremities revealed chronic thrombus, right lower extremity. Laboratory workup revealed mild anemia. Flooring Sales Manager seen and evaluated the patient and diagnosed him with mild anemia of chronic disease. He recommended to monitor clinically. No further intervention at this time required. DVT prophylaxis was provided. Psychiatrist seen and evaluated the patient. The patient with a history of psychiatric disorder with psychotic features. Psychiatrist diagnosed the patient with encephalopathy secondary to general medical condition and optimized psychiatric medication regimen.Patient was started on Zyprexa. The patient was clinically improving. Leukocytosis resolved. No further fever. Wound care was provided as per wound nurse recommendations for sacrococcyx decubitus ulcer stage 2 , present on admission. The patient was stable for discharge. FINAL DIAGNOSES: 1. Fever with leukocytosis, secondary to pneumonia. 2. Pneumonia with Methicillin-resistant Staphylococcus aureus. 3. 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 4. 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 5. Chronic psychiatric disorder with psychotic features. 6. Seizure disorder. 7. Anemia of chronic disease. 8. Chronic thrombus, right lower extremity. 9. Encephalopathy, secondary to general medical condition. 10. Sacrococcyx decubitus ulcer stage 2, present on admission. DISCHARGE MEDICATIONS: See medication reconciliation list. DISCHARGE INSTRUCTIONS: The patient as discharged to half-way facility. FOLLOWUP: Follow up with medical doctor at the facility. Keila Rdz M.D. I have been assigned to dictate discharge summary on this account and I was not involved in the patient's management. [facility]: Gisel JOB#: [id number] CC: ANTHONY
== END 2017-06-04 19:45 | DRG 177 ==
LOC: EDBD 11:01 → EMR 11:25 → EDBEDREQ 11:41 → 4E 11:57 → EDBEDREQ 12:18 → 4E 14:11
DX: J15.212 Pneumonia due to Methicillin resistant Staphylococcus aureus (principal); G93.40 Encephalopathy, unspecified; L89.152 Pressure ulcer of sacral region, stage 2; G91.1 Obstructive hydrocephalus; R53.2 Functional quadriplegia; I82.501 Chronic embolism and thrombosis of unspecified deep veins of right lower extremity; J44.9 Chronic obstructive pulmonary disease, unspecified; G93.0 Cerebral cysts; I67.2 Cerebral atherosclerosis; F01.50 Vascular dementia, unspecified severity, without behavioral disturbance, psychotic disturbance, mood disturbance, and anxiety; F29 Unspecified psychosis not due to a substance or known physiological condition; G40.909 Epilepsy, unspecified, not intractable, without status epilepticus; Z91.81 History of falling; L21.9 Seborrheic dermatitis, unspecified; D63.8 Anemia in other chronic diseases classified elsewhere
CPT/HCPCS: 36415; 70450; 70551; 71010; 80048; 80053; 80202; 81003; 82270; 82550; 82553; 83605; 83880; 84484; 85025; 85610; 87040; 87070; 87081; 87181; 87205; 92610; 93970; 99285